=== PATIENT | male | born 1960 | race Caucasian/White ===

== ENCOUNTER 2017-05-02 00:51 | Day surgery (SDC) | payer MEDICARE ==
[~2017-05-02 00:51] MED LIST: ALBU90OI INH; AMOX1XR PO; ASPI81CH PO; ASPI81EC PO; ATRO1SO BOTHEYES; ATROPINE SULFATE IO; BUME2 PO; BYDUREON2 MG SQ; CEPH500 PO; CHRO200; CIPR500 PO; CLOP75 PO; EZET10 PO; FISH1000; FURO20 PO; FURO40 PO; GABA300 PO; GLIP10 PO; GLIP10ER PO; HYDACE10B PO; HYDR1TAB94 PO; IBUP800; IBUP800 PO; INSDETPEN SC; INSULANPEN; INSULANPEN SC; LEVAQUIN-D750 MG/150 IV; LEVEMIR FL100 UNIT/1 SQ; LEVFLO500 PO; LEVO750; LISI5 PO; LOSA50 PO; Lasix40 MG PO; MELO7.5 PO; METF500; METF500 PO; METF500C PO; METO50 PO; N-ACETYL-L-CYS600 MG PO; Nitrostat0.4 MG SL; Norco 10-325 T1 EACH PO; OMEGA 3-6-9 11200 MG PO; POTA10T PO; POTCHL10ER PO; PRAV20 PO; PRED1SU BOTHEYES; Pravachol80 MG PO; RANI150 PO; ROPI.25 PO; SITA100T2 PO; TIMO.5OPS LEFTEYE; TIMO.5OPSO LEFTEYE; VANCOMYCIN1.5 GM/251 IV; VICTOZA 3-0.6 MG/0.1 SC; Vibramycin100 MG PO; Zantac150 MG PO
[2017-09-17] MEDS ORDERED: SITA100T2 PO (18:33)
[2017-09-17] MEDS ORDERED: ROPI.25 PO (18:34)
[2017-09-17] MEDS ORDERED: METF500C PO (18:36)
[2017-09-17] MEDS ORDERED: LOSA50 PO (18:36)
[2017-09-17] MEDS ORDERED: BUME2 PO (18:38)
[2017-09-17] MEDS ORDERED: Novolog Fl100 UNIT/1 SC (18:40)
[2017-09-21] MEDS ORDERED: DOXY100 PO (14:41)
[2017-09-21] MEDS ORDERED: CULTURELLE1 EACH PO (14:41)
== END 2017-05-02 17:18 | disposition home or self-care (01) ==
LOC: WOUND 00:51
PROC: 0HBMXZZ Excision of Right Foot Skin, External Approach (ICD-10-PCS; principal; 2017-05-02)
DX: Z48.00 Encounter for change or removal of nonsurgical wound dressing (principal); E11.621 Type 2 diabetes mellitus with foot ulcer; L97.412 Non-pressure chronic ulcer of right heel and midfoot with fat layer exposed; L97.422 Non-pressure chronic ulcer of left heel and midfoot with fat layer exposed; L85.9 Epidermal thickening, unspecified; F17.210 Nicotine dependence, cigarettes, uncomplicated; Z89.422 Acquired absence of other left toe(s)
CPT/HCPCS: G0463

== ENCOUNTER 2017-05-24 11:00 | Day surgery (SDC) | payer MEDICARE ==
[2017-09-17] MEDS ORDERED: SITA100T2 PO (18:33)
[2017-09-17] MEDS ORDERED: ROPI.25 PO (18:34)
[2017-09-17] MEDS ORDERED: LOSA50 PO (18:36)
[2017-09-17] MEDS ORDERED: METF500C PO (18:36)
[2017-09-17] MEDS ORDERED: BUME2 PO (18:38)
[2017-09-17] MEDS ORDERED: Novolog Fl100 UNIT/1 SC (18:40)
[2017-09-21] MEDS ORDERED: DOXY100 PO (14:41)
[2017-09-21] MEDS ORDERED: CULTURELLE1 EACH PO (14:41)
== END 2017-05-24 11:44 | disposition home or self-care (01) ==
LOC: WOUND 11:00
DX: Z48.00 Encounter for change or removal of nonsurgical wound dressing (principal); E11.621 Type 2 diabetes mellitus with foot ulcer; F17.210 Nicotine dependence, cigarettes, uncomplicated; L97.519 Non-pressure chronic ulcer of other part of right foot with unspecified severity
CPT/HCPCS: G0463

== ENCOUNTER 2017-06-22 00:56 | Day surgery (SDC) | payer MEDICARE ==
[2017-09-17] MEDS ORDERED: SITA100T2 PO (18:33)
[2017-09-17] MEDS ORDERED: ROPI.25 PO (18:34)
[2017-09-17] MEDS ORDERED: METF500C PO (18:36)
[2017-09-17] MEDS ORDERED: LOSA50 PO (18:36)
[2017-09-17] MEDS ORDERED: BUME2 PO (18:38)
[2017-09-17] MEDS ORDERED: Novolog Fl100 UNIT/1 SC (18:40)
[2017-09-21] MEDS ORDERED: CULTURELLE1 EACH PO (14:41)
[2017-09-21] MEDS ORDERED: DOXY100 PO (14:41)
== END 2017-06-22 23:20 | disposition home or self-care (01) ==
LOC: WOUND 00:56
PROC: 0KBW0ZZ Excision of Left Foot Muscle, Open Approach (ICD-10-PCS; principal; 2017-06-22)
PROC: 0KBT0ZZ Excision of Left Lower Leg Muscle, Open Approach (ICD-10-PCS; principal; 2017-06-22)
DX: Z48.00 Encounter for change or removal of nonsurgical wound dressing (principal); E11.621 Type 2 diabetes mellitus with foot ulcer; I70.209 Unspecified atherosclerosis of native arteries of extremities, unspecified extremity; F17.210 Nicotine dependence, cigarettes, uncomplicated
CPT/HCPCS: 82947; 87070; 87205; G0463

== ENCOUNTER 2017-09-14 13:16 | Emergency (ER) | payer MEDICARE ==
[~2017-09-14] VITALS: Ht 193 cm; Wt 138.3 kg
[~2017-09-14 13:16] MED LIST changes: -Norco 10-325 T1 EACH PO; -Zantac150 MG PO
[2017-09-14 14:07] LABS: BASOPHILS ABSOLUTE AUTO 0.05 K/mm3 (0.00-0.23); BASOPHILS PERCENT AUTO 1 % (0-2); EOSINOPHILS ABSOLUTE AUTO 0.14 K/mm3 (0.00-0.68); EOSINOPHILS PERCENT AUTO 1 % (0-6); Hematocrit 46.5 % (37.0-53.0); Hemoglobin 15.9 g/dL (13.5-17.5); IMMATURE GRAN ABSOLUTE AUTO 0.08 K/mm3 (0.00-0.10); IMMATURE GRAN PERCENT AUTO 1 % (0-1); LYMPHOCYTES ABSOLUTE AUTO 2.16 K/mm3 (0.84-5.20); LYMPHOCYTES PERCENT AUTO 20 % (21-46); MONOCYTES ABSOLUTE AUTO 1.22 K/mm3 (0.16-1.47); MONOCYTES PERCENT AUTO 11 % (4-13); Mean Corpuscular HGB 31.6 pg (26.0-34.0); Mean Corpuscular HGB Conc 34.2 g/dL (31.5-36.5); Mean Corpuscular Volume 92 fL (80-100); Mean Platelet Volume 10.8 fL (9.1-12.4); NEUTROPHILS ABSOLUTE AUTO 7.05 K/mm3 (1.96-9.15); NEUTROPHILS PERCENT AUTO 66 % (41-73); Platelet Count 171 K/mm3 (150-400); RDW Coefficient Variation 12.7 % (11.7-14.2); RDW Standard Deviation 43.3 fL (35.1-46.3); Red Blood Cell Count 5.03 M/mm3 (4.30-5.90)
[2017-09-14 14:24] LABS: Anion Gap 8 mmol/L (6-16); Blood Urea Nitrogen 14 mg/dL (8-24); Bun/Creatinine Ratio 15.8 (12.0-20.0); CO2, Blood 29 mmol/L (21-32); Calcium, Blood 9.3 mg/dL (8.5-10.1); Chloride, Blood 97 mmol/L (98-108); Creatinine, Blood 0.88 mg/dL (0.60-1.20); Glomerular Filtration Rate >60 (60-); Glucose, Blood 146 mg/dL (70-99); Potassium, Blood 4.5 mmol/L (3.5-5.5); Sodium, Blood 134 mmol/L (136-145)
[2017-09-14] MEDS ORDERED: Cleocin HCl300 MG PO (15:05)
[2017-09-17] MEDS ORDERED: SITA100T2 PO (18:33)
[2017-09-17] MEDS ORDERED: ROPI.25 PO (18:34)
[2017-09-17] MEDS ORDERED: METF500C PO (18:36)
[2017-09-17] MEDS ORDERED: LOSA50 PO (18:36)
[2017-09-17] MEDS ORDERED: BUME2 PO (18:38)
[2017-09-17] MEDS ORDERED: Novolog Fl100 UNIT/1 SC (18:40)
== END 2017-09-14 15:07 | disposition left against medical advice (07) ==
LOC: ER 13:16
PROVIDERS: Physician Assistant
DX: L03.116 Cellulitis of left lower limb (principal); L02.416 Cutaneous abscess of left lower limb; E11.9 Type 2 diabetes mellitus without complications; F17.210 Nicotine dependence, cigarettes, uncomplicated; Z88.1 Allergy status to other antibiotic agents; Z88.8 Allergy status to other drugs, medicaments and biological substances; Z79.899 Other long term (current) drug therapy; Z79.4 Long term (current) use of insulin; Z79.82 Long term (current) use of aspirin
CPT/HCPCS: 36415; 76882; 80048; 85025; 96365; 99284

== ENCOUNTER 2017-09-17 14:00 | Inpatient (IN) | END 2017-09-21 16:03 | disposition home or self-care (01) | DRG 571 ==

== ENCOUNTER 2017-11-05 00:08 | Day surgery (SDC) | payer MEDICARE ==
[~2017-11-05 00:08] MED LIST changes: +CULTURELLE1 EACH PO; +Cleocin HCl300 MG PO; +DOXY100 PO; +Norco 10-325 T1 EACH PO; +Novolog Fl100 UNIT/1 SC; +Zantac150 MG PO
== END 2017-11-05 10:28 | disposition home or self-care (01) ==
LOC: WOUND 00:08
PROC: 2W0QX6Z Change Pressure Dressing on Right Lower Leg (ICD-10-PCS; principal; 2017-11-05)
DX: Z48.01 Encounter for change or removal of surgical wound dressing (principal); I70.209 Unspecified atherosclerosis of native arteries of extremities, unspecified extremity; E11.622 Type 2 diabetes mellitus with other skin ulcer; E11.65 Type 2 diabetes mellitus with hyperglycemia; L97.812 Non-pressure chronic ulcer of other part of right lower leg with fat layer exposed; E11.621 Type 2 diabetes mellitus with foot ulcer; L97.502 Non-pressure chronic ulcer of other part of unspecified foot with fat layer exposed; L97.422 Non-pressure chronic ulcer of left heel and midfoot with fat layer exposed; L02.416 Cutaneous abscess of left lower limb; F17.218 Nicotine dependence, cigarettes, with other nicotine-induced disorders; E78.5 Hyperlipidemia, unspecified; Z88.8 Allergy status to other drugs, medicaments and biological substances; Z95.1 Presence of aortocoronary bypass graft; Z95.5 Presence of coronary angioplasty implant and graft; Z86.73 Personal history of transient ischemic attack (TIA), and cerebral infarction without residual deficits
CPT/HCPCS: G0463

== ENCOUNTER 2017-11-12 11:00 | Day surgery (SDC) | payer MEDICARE | END 2017-11-12 13:04 | disposition home or self-care (01) | LOC: WOUND 11:00 | DX: E11.621 Type 2 diabetes mellitus with foot ulcer (principal); E11.622 Type 2 diabetes mellitus with other skin ulcer; L97.522 Non-pressure chronic ulcer of other part of left foot with fat layer exposed; L97.418 Non-pressure chronic ulcer of right heel and midfoot with other specified severity; L97.822 Non-pressure chronic ulcer of other part of left lower leg with fat layer exposed; S81.812A Laceration without foreign body, left lower leg, initial encounter; I70.209 Unspecified atherosclerosis of native arteries of extremities, unspecified extremity; R60.0 Localized edema; E11.65 Type 2 diabetes mellitus with hyperglycemia; F17.218 Nicotine dependence, cigarettes, with other nicotine-induced disorders; L84 Corns and callosities | CPT/HCPCS: G0463 ==

== ENCOUNTER 2017-12-15 19:38 | Emergency (ER) | payer MEDICARE ==
[~2017-12-15] VITALS: Ht 193 cm; Wt 140.6 kg
[2017-12-15] MEDS ORDERED: Keflex500 MG PO (21:59)
[2017-12-15] MEDS ORDERED: Bactrim Ds Tab1 EACH PO (21:59)
== END 2017-12-15 22:05 | disposition home or self-care (01) ==
LOC: ER 19:38
DX: L03.114 Cellulitis of left upper limb (principal); Z88.8 Allergy status to other drugs, medicaments and biological substances; Z79.899 Other long term (current) drug therapy; Z79.4 Long term (current) use of insulin; Z79.82 Long term (current) use of aspirin; Z79.84 Long term (current) use of oral hypoglycemic drugs; E11.9 Type 2 diabetes mellitus without complications; E78.5 Hyperlipidemia, unspecified; I10 Essential (primary) hypertension; J44.9 Chronic obstructive pulmonary disease, unspecified; F17.200 Nicotine dependence, unspecified, uncomplicated
CPT/HCPCS: 99282

== ENCOUNTER → 2017-12-20 | Outpatient (CLI) | payer MEDICARE ==
[~2017-12-20] MED LIST changes: +Bactrim Ds Tab1 EACH PO; +Keflex500 MG PO
== END ==
LOC: LAB 11:27 → LAB SHORT 11:27
DX: M25.522 Pain in left elbow (principal)
CPT/HCPCS: 87070; 87075; 87077; 87147; 87186; 87205

== ENCOUNTER 2017-12-31 17:00 | Emergency (ER) | payer MEDICARE ==
[~2017-12-31] VITALS: Ht 193 cm; Wt 140.2 kg
[2017-12-31 19:57] LABS: BASOPHILS ABSOLUTE AUTO 0.04 K/mm3 (0.00-0.23); BASOPHILS PERCENT AUTO 0 % (0-2); EOSINOPHILS ABSOLUTE AUTO 0.42 K/mm3 (0.00-0.68); EOSINOPHILS PERCENT AUTO 4 % (0-6); Hematocrit 42.2 % (37.0-53.0); IMMATURE GRAN ABSOLUTE AUTO 0.05 K/mm3 (0.00-0.10); IMMATURE GRAN PERCENT AUTO 1 % (0-1); LYMPHOCYTES ABSOLUTE AUTO 2.53 K/mm3 (0.84-5.20); LYMPHOCYTES PERCENT AUTO 26 % (21-46); MONOCYTES ABSOLUTE AUTO 0.93 K/mm3 (0.16-1.47); MONOCYTES PERCENT AUTO 10 % (4-13); Mean Corpuscular HGB 30.9 pg (26.0-34.0); Mean Corpuscular HGB Conc 33.2 g/dL (31.5-36.5); Mean Corpuscular Volume 93 fL (80-100); NEUTROPHILS ABSOLUTE AUTO 5.63 K/mm3 (1.96-9.15); NEUTROPHILS PERCENT AUTO 59 % (41-73); Platelet Count 189 K/mm3 (150-400); RDW Coefficient Variation 12.9 % (11.7-14.2); RDW Standard Deviation 44.1 fL (35.1-46.3); Red Blood Cell Count 4.53 M/mm3 (4.30-5.90)
[2017-12-31 20:10] LABS: Alanine Aminotransfer (ALT/SGP 45 U/L (12-78); Albumin/Globulin Ratio 0.6 (0.8-1.8); Alk Phos 67 U/L (50-136); Anion Gap 10 mmol/L (6-16); Aspartate Aminotrans (AST/SGOT 61 U/L (12-37); Bilirubin, Total 0.3 mg/dL (0.1-1.0); Blood Urea Nitrogen 16 mg/dL (8-24); Bun/Creatinine Ratio 16.4 (12.0-20.0); CO2, Blood 25 mmol/L (21-32); Calcium, Blood 8.5 mg/dL (8.5-10.1); Chloride, Blood 97 mmol/L (98-108); Creatinine, Blood 0.98 mg/dL (0.60-1.20); Globulin, Blood 4.9 g/dL (2.2-4.0); Glomerular Filtration Rate >60 (60-); Glucose, Blood 196 mg/dL (70-99); Potassium, Blood 4.7 mmol/L (3.5-5.5); Sodium, Blood 132 mmol/L (136-145); Total Protein, Blood 7.9 g/dL (6.4-8.2)
== END 2017-12-31 19:41 | disposition home or self-care (01) ==
LOC: ER 17:00
PROVIDERS: Physician Assistant
DX: L03.114 Cellulitis of left upper limb (principal); E11.9 Type 2 diabetes mellitus without complications; F17.210 Nicotine dependence, cigarettes, uncomplicated; Z88.1 Allergy status to other antibiotic agents; Z88.8 Allergy status to other drugs, medicaments and biological substances; Z79.899 Other long term (current) drug therapy; Z79.82 Long term (current) use of aspirin; Z79.4 Long term (current) use of insulin
CPT/HCPCS: 36415; 73080; 80053; 85025; 99283-25

== ENCOUNTER 2018-01-08 12:15 | Day surgery (SDC) | payer MEDICARE | END 2018-01-08 22:38 | disposition home or self-care (01) | LOC: WOUND 12:15 | DX: S81.802D Unspecified open wound, left lower leg, subsequent encounter (principal); E11.21 Type 2 diabetes mellitus with diabetic nephropathy; E11.621 Type 2 diabetes mellitus with foot ulcer; L97.529 Non-pressure chronic ulcer of other part of left foot with unspecified severity | CPT/HCPCS: 82947; G0463 ==

== ENCOUNTER 2018-01-08 14:25 | Emergency (ER) | payer MEDICARE ==
[~2018-01-08] VITALS: Ht 193 cm; Wt 140.2 kg
[2018-01-08 15:10] LABS: BASOPHILS ABSOLUTE AUTO 0.08 K/mm3 (0.00-0.23); BASOPHILS PERCENT AUTO 1 % (0-2); EOSINOPHILS ABSOLUTE AUTO 1.79 K/mm3 (0.00-0.68); EOSINOPHILS PERCENT AUTO 13 % (0-6); Hemoglobin 15.4 g/dL (13.5-17.5); IMMATURE GRAN ABSOLUTE AUTO 0.38 K/mm3 (0.00-0.10); IMMATURE GRAN PERCENT AUTO 3 % (0-1); LYMPHOCYTES ABSOLUTE AUTO 2.35 K/mm3 (0.84-5.20); LYMPHOCYTES PERCENT AUTO 17 % (21-46); MONOCYTES ABSOLUTE AUTO 1.33 K/mm3 (0.16-1.47); MONOCYTES PERCENT AUTO 10 % (4-13); Mean Corpuscular HGB 31.2 pg (26.0-34.0); Mean Corpuscular HGB Conc 33.5 g/dL (31.5-36.5); Mean Corpuscular Volume 93 fL (80-100); Mean Platelet Volume 10.6 fL (9.1-12.4); NEUTROPHILS ABSOLUTE AUTO 8.02 K/mm3 (1.96-9.15); NEUTROPHILS PERCENT AUTO 58 % (41-73); Platelet Count 223 K/mm3 (150-400); RDW Coefficient Variation 13.6 % (11.7-14.2); RDW Standard Deviation 46.5 fL (35.1-46.3); Red Blood Cell Count 4.94 M/mm3 (4.30-5.90); White Blood Cell Count 13.95 K/mm3 (4.00-11.30)
[2018-01-08 15:25] LABS: Alanine Aminotransfer (ALT/SGP 30 U/L (12-78); Albumin, Blood 3.2 g/dL (3.4-5.0); Albumin/Globulin Ratio 0.7 (0.8-1.8); Alk Phos 68 U/L (50-136); Anion Gap 9 mmol/L (6-16); Aspartate Aminotrans (AST/SGOT 39 U/L (12-37); Bilirubin, Total 0.2 mg/dL (0.1-1.0); Blood Urea Nitrogen 19 mg/dL (8-24); Bun/Creatinine Ratio 16.7 (12.0-20.0); CO2, Blood 26 mmol/L (21-32); Calcium, Blood 8.9 mg/dL (8.5-10.1); Chloride, Blood 102 mmol/L (98-108); Creatinine, Blood 1.14 mg/dL (0.60-1.20); Globulin, Blood 4.8 g/dL (2.2-4.0); Glomerular Filtration Rate >60 (60-); Glucose, Blood 59 mg/dL (70-99); Potassium, Blood 3.9 mmol/L (3.5-5.5); Sodium, Blood 137 mmol/L (136-145)
== END 2018-01-08 16:44 | disposition home or self-care (01) ==
LOC: ER 14:25
PROVIDERS: Internal Medicine
DX: E11.649 Type 2 diabetes mellitus with hypoglycemia without coma (principal); Z88.8 Allergy status to other drugs, medicaments and biological substances; Z79.899 Other long term (current) drug therapy; Z79.4 Long term (current) use of insulin; Z79.82 Long term (current) use of aspirin; Z79.84 Long term (current) use of oral hypoglycemic drugs; F17.210 Nicotine dependence, cigarettes, uncomplicated
CPT/HCPCS: 36415; 80053; 82947; 85025; 99283

== ENCOUNTER 2018-04-29 06:28 | Day surgery (SDC) | payer MEDICARE ==
[~2018-04-29] VITALS: Ht 193 cm; Wt 144.8 kg
== END 2018-04-29 08:58 | disposition home or self-care (01) ==
LOC: ORSCSDS 06:28
PROVIDERS: Student in an Organized Health Care Education/Training Program
PROC: 0DB68ZX Excision of Stomach, Via Natural or Artificial Opening Endoscopic, Diagnostic (ICD-10-PCS; principal; 2018-04-29 08:00)
PROC: 0DJD8ZZ Inspection of Lower Intestinal Tract, Via Natural or Artificial Opening Endoscopic (ICD-10-PCS; principal; 2018-04-29 08:00)
DX: R10.13 Epigastric pain (principal); K29.00 Acute gastritis without bleeding; K25.9 Gastric ulcer, unspecified as acute or chronic, without hemorrhage or perforation; K92.1 Melena; I25.10 Atherosclerotic heart disease of native coronary artery without angina pectoris; I10 Essential (primary) hypertension; E11.9 Type 2 diabetes mellitus without complications; J44.9 Chronic obstructive pulmonary disease, unspecified; G47.33 Obstructive sleep apnea (adult) (pediatric); F17.210 Nicotine dependence, cigarettes, uncomplicated; Z79.01 Long term (current) use of anticoagulants; Z79.82 Long term (current) use of aspirin; Z79.4 Long term (current) use of insulin; Z79.899 Other long term (current) drug therapy
CPT/HCPCS: 82947; 88305; 88341; 88342; J0330; J1980; J2250; J2405; J7120

== ENCOUNTER → 2018-05-27 | Outpatient (CLI) | payer MEDICARE ==
[2018-05-28 10:14] LABS: U Amphetamine Screen Not Detected; U Barbituate Screen Not Detected; U Benzodiazapine Screen Not Detected; U Buprenorphine Screen Not Detected; U Cannabinoids Screen Not Detected; U Cocaine Screen Not Detected; U Methadone Screen Not Detected; U Methamphetamine Screen Not Detected; U Opiates Screen DETECTED; U Oxycodone Screen Not Detected; U Phencyclidine Screen Not Detected; U Propoxyphene Screen Not Detected
== END | disposition home or self-care (01) ==
LOC: LAB SHORT 16:51 → LAB 16:51
PROVIDERS: Internal Medicine Hematology & Oncology
DX: F11.220 Opioid dependence with intoxication, uncomplicated (principal)
CPT/HCPCS: G0480

== ENCOUNTER 2018-09-08 18:04 | Inpatient (IN) | payer MEDICARE ==
[~2018-09-08] VITALS: Ht 193 cm; Wt 147.2 kg
[~2018-09-08 18:04] MED LIST changes: +NOVOLOG FL100 UNIT/1 SC; -Novolog Fl100 UNIT/1 SC
[2018-09-08 18:56] LABS: BASOPHILS ABSOLUTE AUTO 0.05 K/mm3 (0.00-0.23); BASOPHILS PERCENT AUTO 1 % (0-2); EOSINOPHILS ABSOLUTE AUTO 0.18 K/mm3 (0.00-0.68); EOSINOPHILS PERCENT AUTO 3 % (0-6); Hematocrit 43.2 % (37.0-53.0); IMMATURE GRAN ABSOLUTE AUTO 0.07 K/mm3 (0.00-0.10); IMMATURE GRAN PERCENT AUTO 1 % (0-1); LYMPHOCYTES ABSOLUTE AUTO 1.83 K/mm3 (0.84-5.20); LYMPHOCYTES PERCENT AUTO 25 % (21-46); MONOCYTES ABSOLUTE AUTO 0.62 K/mm3 (0.16-1.47); MONOCYTES PERCENT AUTO 9 % (4-13); Mean Corpuscular HGB 30.7 pg (26.0-34.0); Mean Corpuscular HGB Conc 32.4 g/dL (31.5-36.5); Mean Corpuscular Volume 95 fL (80-100); NEUTROPHILS ABSOLUTE AUTO 4.52 K/mm3 (1.96-9.15); NEUTROPHILS PERCENT AUTO 62 % (41-73); Platelet Count 245 K/mm3 (150-400); RDW Coefficient Variation 13.1 % (11.7-14.2); Red Blood Cell Count 4.56 M/mm3 (4.30-5.90); White Blood Cell Count 7.27 K/mm3 (4.00-11.30)
[2018-09-08 19:14] LABS: Alanine Aminotransfer (ALT/SGP 29 U/L (12-78); Albumin, Blood 2.7 g/dL (3.4-5.0); Albumin/Globulin Ratio 0.5 (0.8-1.8); Alk Phos 71 U/L (50-136); Anion Gap 2 mmol/L (6-16); Aspartate Aminotrans (AST/SGOT 38 U/L (12-37); Bilirubin, Total 0.2 mg/dL (0.1-1.0); Blood Urea Nitrogen 20 mg/dL (8-24); Bun/Creatinine Ratio 17.7 (12.0-20.0); CO2, Blood 30 mmol/L (21-32); Calcium, Blood 8.7 mg/dL (8.5-10.1); Chloride, Blood 100 mmol/L (98-108); Creatinine, Blood 1.13 mg/dL (0.60-1.20); Globulin, Blood 5.4 g/dL (2.2-4.0); Glomerular Filtration Rate >60 (60-); Glucose, Blood 76 mg/dL (70-99); Potassium, Blood 4.8 mmol/L (3.5-5.5); Sodium, Blood 132 mmol/L (136-145); Total Protein, Blood 8.1 g/dL (6.4-8.2)
[2018-09-08] MEDS ORDERED: METF500C PO (20:20)
[2018-09-08] MEDS ORDERED: ESOMEPRAZOLE MA40 MG PO (20:35)
[2018-09-08] MEDS ORDERED: BUME2 PO (21:00)
[2018-09-09 04:30] LABS: BASOPHILS ABSOLUTE AUTO 0.04 K/mm3 (0.00-0.23); BASOPHILS PERCENT AUTO 1 % (0-2); EOSINOPHILS ABSOLUTE AUTO 0.12 K/mm3 (0.00-0.68); EOSINOPHILS PERCENT AUTO 2 % (0-6); Hematocrit 40.8 % (37.0-53.0); IMMATURE GRAN ABSOLUTE AUTO 0.04 K/mm3 (0.00-0.10); IMMATURE GRAN PERCENT AUTO 1 % (0-1); LYMPHOCYTES ABSOLUTE AUTO 2.06 K/mm3 (0.84-5.20); LYMPHOCYTES PERCENT AUTO 28 % (21-46); MONOCYTES ABSOLUTE AUTO 0.71 K/mm3 (0.16-1.47); MONOCYTES PERCENT AUTO 10 % (4-13); Mean Corpuscular HGB 30.4 pg (26.0-34.0); Mean Corpuscular HGB Conc 31.9 g/dL (31.5-36.5); Mean Corpuscular Volume 96 fL (80-100); Mean Platelet Volume 9.8 fL (9.1-12.4); NEUTROPHILS ABSOLUTE AUTO 4.51 K/mm3 (1.96-9.15); NEUTROPHILS PERCENT AUTO 60 % (41-73); Platelet Count 216 K/mm3 (150-400); RDW Coefficient Variation 13.2 % (11.7-14.2); RDW Standard Deviation 46.5 fL (35.1-46.3); Red Blood Cell Count 4.27 M/mm3 (4.30-5.90); White Blood Cell Count 7.48 K/mm3 (4.00-11.30)
[2018-09-09 04:45] LABS: International Normalized Ratio 0.97; Prothrombin Time Results 10.3 Sec (9.7-11.5)
[2018-09-09 04:53] LABS: Alanine Aminotransfer (ALT/SGP 27 U/L (12-78); Albumin, Blood 2.5 g/dL (3.4-5.0); Albumin/Globulin Ratio 0.5 (0.8-1.8); Alk Phos 65 U/L (50-136); Anion Gap 5 mmol/L (6-16); Aspartate Aminotrans (AST/SGOT 34 U/L (12-37); Bilirubin, Total 0.2 mg/dL (0.1-1.0); Blood Urea Nitrogen 17 mg/dL (8-24); Bun/Creatinine Ratio 15.6 (12.0-20.0); CO2, Blood 28 mmol/L (21-32); Calcium, Blood 8.6 mg/dL (8.5-10.1); Chloride, Blood 104 mmol/L (98-108); Creatinine, Blood 1.09 mg/dL (0.60-1.20); Globulin, Blood 4.8 g/dL (2.2-4.0); Glomerular Filtration Rate >60 (60-); Glucose, Blood 87 mg/dL (70-99); Potassium, Blood 5.1 mmol/L (3.5-5.5); Sodium, Blood 137 mmol/L (136-145); Total Protein, Blood 7.3 g/dL (6.4-8.2)
--- NOTE | 2018-09-09 05:41 | NUR ---
SHIFT SUMMARY PT ADMITTED FOR SEVERE SEPSIS, CELLULITIS NOTED OF THE LEFT ELBOW. PT ALERT AND ORIENTED. ALSO NOTED TO HAVE A DIABETIC FOOT ULCER ON THE RIGHT FOOT BOTTOM OF GREAT TOE. PICTURES TAKEN OF BOTH AREAS AND ARE IN CHART. LEFT ELBOW WRAPPED. IVF'S INFUSING WITHOUT DIFFICULTY. WILL CONTINUE TO MONITOR.
--- NOTE | 2018-09-09 16:59 | NUR ---
PT REPORTS THAT HE DOES NOT USE CPAP/BIPAP/O2 AT HOME. DR. YADAV NOTIFIED, RECIEVED ORDER TO D/C BIPAP. RT NOTIFIED.
[2018-09-09 17:32] LABS: Vancomycin, Trough 17.3 ug/mL (5.0-10.0)
--- NOTE | 2018-09-09 19:22 | NUR ---
SHIFT SUMMARY. A&OX3, SBA TO BATHROOM SECONDARY TO IV. L ELBOW DRESSING CHANGED SECONDARY TO SOILING R/T DRAINAGE. R DIABETIC FOOT ULCER DRESSING CHANGED SECONDARY TO SOILING. PT REPORTED PAIN TO L ELBOW, MANAGED WELL WITH CURRENT ORDERS. PT DENIES SOB, N/V. CONTINUES WITH IV ABX. NO NEW CHANGES.
[2018-09-10 04:41] LABS: BASOPHILS ABSOLUTE AUTO 0.08 K/mm3 (0.00-0.23); BASOPHILS PERCENT AUTO 1 % (0-2); EOSINOPHILS ABSOLUTE AUTO 0.19 K/mm3 (0.00-0.68); EOSINOPHILS PERCENT AUTO 2 % (0-6); Hematocrit 45.1 % (37.0-53.0); Hemoglobin 14.4 g/dL (13.5-17.5); IMMATURE GRAN ABSOLUTE AUTO 0.05 K/mm3 (0.00-0.10); IMMATURE GRAN PERCENT AUTO 1 % (0-1); LYMPHOCYTES ABSOLUTE AUTO 2.23 K/mm3 (0.84-5.20); LYMPHOCYTES PERCENT AUTO 23 % (21-46); MONOCYTES ABSOLUTE AUTO 0.89 K/mm3 (0.16-1.47); MONOCYTES PERCENT AUTO 9 % (4-13); Mean Corpuscular HGB 30.7 pg (26.0-34.0); Mean Corpuscular HGB Conc 31.9 g/dL (31.5-36.5); Mean Corpuscular Volume 96 fL (80-100); NEUTROPHILS ABSOLUTE AUTO 6.33 K/mm3 (1.96-9.15); NEUTROPHILS PERCENT AUTO 65 % (41-73); Platelet Count 254 K/mm3 (150-400); RDW Coefficient Variation 13.2 % (11.7-14.2); Red Blood Cell Count 4.69 M/mm3 (4.30-5.90); White Blood Cell Count 9.77 K/mm3 (4.00-11.30)
--- NOTE | 2018-09-10 04:59 | NUR ---
Shift Summary: Left elbow cellulitis site redressed x 2 last pm per pt's request. Pt given norco q 8 hours with minimal relief for his lower back pain and left elbow. Pt recieving antibx's without problems. blood sugar last pm was 171- no sliding scale coverage needed.
[2018-09-10 05:02] LABS: Alanine Aminotransfer (ALT/SGP 30 U/L (12-78); Albumin, Blood 2.8 g/dL (3.4-5.0); Albumin/Globulin Ratio 0.5 (0.8-1.8); Alk Phos 77 U/L (50-136); Anion Gap 6 mmol/L (6-16); Aspartate Aminotrans (AST/SGOT 38 U/L (12-37); Bilirubin, Total 0.4 mg/dL (0.1-1.0); Blood Urea Nitrogen 14 mg/dL (8-24); Bun/Creatinine Ratio 14.7 (12.0-20.0); CO2, Blood 26 mmol/L (21-32); Calcium, Blood 9.1 mg/dL (8.5-10.1); Chloride, Blood 102 mmol/L (98-108); Creatinine, Blood 0.95 mg/dL (0.60-1.20); Globulin, Blood 5.5 g/dL (2.2-4.0); Glomerular Filtration Rate >60 (60-); Glucose, Blood 109 mg/dL (70-99); Potassium, Blood 4.8 mmol/L (3.5-5.5); Sodium, Blood 134 mmol/L (136-145); Total Protein, Blood 8.3 g/dL (6.4-8.2)
[2018-09-10] MEDS ORDERED: Sulfamethoxazo1 EAC4 PO (11:16)
[2018-09-10] MEDS ORDERED: Vsl#3 Capsule1 EACH PO (11:17)
--- NOTE | 2018-09-10 11:49 | NUR ---
1149 PT DISCHARGED HOME, PT REQUESTED TO BE ESCORTED TO FACILITY ENTRANCE VIA W/C TO AWAIT TO PROVIDE TRANSPORTATION HOME, SUPERVISOR BENZENE REFINING ESCORTED PT VIA W/C. IV REMOVED. D/C INSTRUCTIONS AND EDUCATION REVIEWED WITH PT AND COPY PROVIDED. NEW RX FAXED TO [facility] PER PT REQUEST. PT REPORTED THAT HE ALREADY HAS APPOINTMENTS WITH DR. COWART AND DR. BRICEÑO THIS MONTH. DRESSING TO L ELBOW CHANGED THIS AM. L ELBOW HAS DECREASED REDNESS, DRAINAGE, AND EDEMA WHEN COMPARED TO YESTERDAY.
== END 2018-09-10 11:49 | disposition home or self-care (01) | DRG 872 ==
LOC: ER 18:04 → MEDS 21:10 → ENPENDDIS 09-10 10:18 → MEDS 09-10 11:49
PROVIDERS: Family Medicine; Nurse Practitioner Acute Care; Physician Assistant; ADMIT Internal Medicine
DX: A41.02 Sepsis due to Methicillin resistant Staphylococcus aureus (principal); L03.114 Cellulitis of left upper limb; E87.2 Acidosis; E87.1 Hypo-osmolality and hyponatremia; E66.2 Morbid (severe) obesity with alveolar hypoventilation; E78.5 Hyperlipidemia, unspecified; J44.9 Chronic obstructive pulmonary disease, unspecified; F17.210 Nicotine dependence, cigarettes, uncomplicated; G47.33 Obstructive sleep apnea (adult) (pediatric); Z91.19 Patient's noncompliance with other medical treatment and regimen; E11.40 Type 2 diabetes mellitus with diabetic neuropathy, unspecified; I10 Essential (primary) hypertension; I25.10 Atherosclerotic heart disease of native coronary artery without angina pectoris; Z95.5 Presence of coronary angioplasty implant and graft; Z68.39 Body mass index [BMI] 39.0-39.9, adult; E11.621 Type 2 diabetes mellitus with foot ulcer; L97.519 Non-pressure chronic ulcer of other part of right foot with unspecified severity; Z79.4 Long term (current) use of insulin; M71.122 Other infective bursitis, left elbow
CPT/HCPCS: 36415; 73201; 80053; 80202; 82947; 83036; 83605; 85025; 85610; 86140; 94760; 96365-59; 96366-59; 99284-25; J0690; J1650; J3370; J7030; J7050; J7120; Q9967

== ENCOUNTER → 2019-01-31 | Outpatient (CLI) | payer MEDICARE ==
[~2019-01-31] MED LIST changes: +ESOMEPRAZOLE MA40 MG PO; +Sulfamethoxazo1 EAC4 PO; +Vsl#3 Capsule1 EACH PO
[2019-01-31 13:25] LABS: RBC Count, Synovial Fluid 10000 /mm3 (0-0); WBC Count, Synovial Fluid 421 /mm3 (0-180)
[2019-01-31 13:36] LABS: Appearance, Synovial Fluid Hazy (Clear); Color, Synovial Fluid Yellow (None-P Yel)
[2019-01-31 13:59] LABS: Lymphs, Synovial Fluid 23 % (0-15); Monocytes/Macrophages, Synovia 60 % (0-65); Neutrophils, Synovial Fluid 17 % (0-24)
== END | disposition home or self-care (01) ==
LOC: LAB SHORT 12:51 → LAB 12:51
PROVIDERS: Orthopaedic Surgery
DX: M70.22 Olecranon bursitis, left elbow (principal)
CPT/HCPCS: 87070; 87075; 87205; 89051

== ENCOUNTER 2019-09-08 14:56 | Inpatient (IN) | payer MEDICARE ==
[~2019-09-08] VITALS: Ht 190.5 cm; Wt 148.1 kg
[~2019-09-08 14:56] MED LIST changes: -ASPI81CH PO; +Aspirin EC81 MG PO; -Pravachol80 MG PO; +Pravastatin Sod80 MG PO
[2019-09-08 15:29] LABS: BASOPHILS ABSOLUTE AUTO 0.08 K/mm3 (0.00-0.23); BASOPHILS PERCENT AUTO 0 % (0-2); EOSINOPHILS ABSOLUTE AUTO 0.05 K/mm3 (0.00-0.68); EOSINOPHILS PERCENT AUTO 0 % (0-6); Hematocrit 45.6 % (37.0-53.0); Hemoglobin 14.8 g/dL (13.5-17.5); IMMATURE GRAN ABSOLUTE AUTO 0.14 K/mm3 (0.00-0.10); IMMATURE GRAN PERCENT AUTO 1 % (0-1); LYMPHOCYTES ABSOLUTE AUTO 0.85 K/mm3 (0.84-5.20); LYMPHOCYTES PERCENT AUTO 4 % (21-46); MONOCYTES ABSOLUTE AUTO 1.28 K/mm3 (0.16-1.47); MONOCYTES PERCENT AUTO 6 % (4-13); Mean Corpuscular HGB 30.6 pg (26.0-34.0); Mean Corpuscular HGB Conc 32.5 g/dL (31.5-36.5); Mean Corpuscular Volume 94 fL (80-100); Mean Platelet Volume 11.2 fL (9.1-12.4); NEUTROPHILS ABSOLUTE AUTO 17.83 K/mm3 (1.96-9.15); NEUTROPHILS PERCENT AUTO 88 % (41-73); Platelet Count 195 K/mm3 (150-400); RDW Coefficient Variation 14.2 % (11.7-14.2); RDW Standard Deviation 49.5 fL (35.1-46.3); Red Blood Cell Count 4.84 M/mm3 (4.30-5.90); White Blood Cell Count 20.23 K/mm3 (4.00-11.30)
[2019-09-08 15:49] LABS: Source, Urine Catheter
[2019-09-08 15:53] LABS: Bilirubin, Urine Neg (Neg); Blood, Urine Neg (Neg); Glucose Qualitative, Urine Neg (Neg); Ketones, Urine Neg (Neg); Leukocyte Esterase, Urine 1+ (Neg); Nitrite, Urine Neg (Neg); Protein, Urine 1+ (Neg); Urobilinogen, Urine NORM (Normal)
[2019-09-08 15:58] LABS: Alanine Aminotransfer (ALT/SGP 30 U/L (12-78); Albumin, Blood 3.1 g/dL (3.4-5.0); Albumin/Globulin Ratio 0.6 (0.8-1.8); Alk Phos 63 U/L (50-136); Anion Gap 9 mmol/L (6-16); Aspartate Aminotrans (AST/SGOT 38 U/L (12-37); Bilirubin, Total 0.4 mg/dL (0.1-1.0); Blood Urea Nitrogen 22 mg/dL (8-24); Bun/Creatinine Ratio 18.3 (12.0-20.0); CO2, Blood 26 mmol/L (21-32); Calcium, Blood 8.7 mg/dL (8.5-10.1); Chloride, Blood 101 mmol/L (98-108); Globulin, Blood 5.4 g/dL (2.2-4.0); Glomerular Filtration Rate >60 (60-); Glucose, Blood 174 mg/dL (70-99); Potassium, Blood 5.5 mmol/L (3.5-5.5); Sodium, Blood 136 mmol/L (136-145); Total Protein, Blood 8.5 g/dL (6.4-8.2); Troponin I <0.015 ng/mL (0.000-0.040)
[2019-09-08 15:59] LABS: Appearance, Urine Clear (Clear); Bacteria Few /hpf; Color, Urine Yellow (P-Yellow); Mucus Light (0-Heavy); Red Blood Cells, Urine 0-2 /hpf (0-2); Squamous Epithelial Cells Rare /hpf (Few); White Blood Cells, Urine 0-2 /hpf (0-5)
[2019-09-08 16:10] LABS: Base Excess Venous 3.7 mmol/L; PCO2 Venous 43.7 mmHg (38-42); PO2 Venous 68.9 mmHg (38-42); pH Blood Venous 7.42 (7.34-7.37)
[2019-09-08] MEDS ORDERED: NEURONTIN300 MG PO (16:33)
[2019-09-08] MEDS ORDERED: POTA10T PO (16:34)
[2019-09-08] MEDS ORDERED: Lopressor 50 mg50 MG PO (16:34)
[2019-09-08] MEDS ORDERED: PLAVIX75 MG PO (16:34)
[2019-09-08] MEDS ORDERED: LOSA50 PO (16:37)
[2019-09-08] MEDS ORDERED: Glimepiride2 MG PO (16:38)
[2019-09-08] MEDS ORDERED: Norco 10-325 T1 EACH PO (16:52)
[2019-09-08] MEDS ORDERED: FAMO20 PO (16:53)
--- NOTE | 2019-09-08 18:20 | NUR ---
PT ARRIVAL: PT ARRIVED VIA ED GURNEY. PT MOVED TO BED, CALL LIGHT WITHIN REACH. PT ALERT AND ORIENTED X3. PLEASANT AND COOPERATIVE WITH CARE. PT REPORTS HX OF SEPSIS AND HAVING A PICC LINE IN THE PAST FOR 30 DAYS OF CONT ABX TX. LUNGS WITH INS/EXP WHEEZES T/O BILATERALLY AND VERY DIMINISHED IN THE RML/RLL. SP02 SATS LOW 90% RANGE ON 3L VIA N/C. PT REPORTS SOME COUGHING WITH NO SPUTUM PRODUCTION AT HOME. NO COUGH NOTED AT THIS TIME. PT REPORTS HE SMOKES 2 PPD AND PT'S RT 2ND/3RD FINGER ARE SCABBED OVER R/T TO PT REPEATED BURNING HIMSELF WITH CIGARETTES. 3RD LITER NS BOLUS INFUSING CURRENTLY THEN PT TO RUN NS @ 200ML/HR. ABD IS OBESE/DISTENDED W/ LARGE UMBILICAL HERNIA. VERY HYPOACTIVE BT'S X 4 QAUDS. PT VOIDED PER URINAL IN ER.
--- NOTE | 2019-09-08 18:41 | NUR ---
LAB CALLED AND REPORTED LACTIC ACID SPECIMEN WAS HEMOLYZED. LAB TO INFORM PHLEBOTOMISTS TO COME REDRAW PT.
--- NOTE | 2019-09-08 19:00 | NUR ---
PT IS ADMITTED FROM ER FOR SEVERE SEPSIS, SOURCE UNCLEAR AT THIS TIME. HE IS RESTING QUIETLY AND ROUSES EASILY TO VERBAL STIMULI, WHEN STIMULUS IS DECREASED HE APPEARS TO SLEEP WITH RESPIRATIONS EVEN AND UNLABORED, SATS WITH SLEEP ARE NOTED TO DECREASE TO 88%, OXYGEN FLOW RATE TITRATED UP TO 5 L/MIN DURING ASSESSMENT WITH IMPROVEMENT OF SATS TO LOW 90S, LUNGS WITH COARSE DIM RIGHT MID, CLEAR RIGHT UPPER, DIM RIGHT BASE, CLEAR LEFT UPPER LOBE, DIM LEFT LOWER LOBE, NO VISIBLE INCREASED WORK OF BREATHING, PT SPEAKING IN LENGTHY SENTENCES. HRR, SINUS ON MONITOR, OCCASIONAL PVCS ARE NOTED, PRESSURES CONTINUE MID TO UPPER 80S SYSTOLIC, MAP MAINTAINING AT THIS TIME, EDEMA TO BILAT LOWER EXTREMITIES, NON PITTING 2+, SKIN IS PWD. ABD DISTENDED, HYPOACTIVE BOWEL TONES, PT STATES IS NORMAL FOR HIM, DENIES N/V, UMBILICAL HERNIA IS NOTED, PT DENIES PAIN. ATTENDS IN PLACE, DRY AT THIS TIME, WAS CONTINENT OF URINE IN ER, DENIES NEED TO VOID AT THIS TIME. MULT WOUNDS NOTED, SEE PHOTO DOCUMENTATION. SALINE INFUSING AT 200 ML/HR TO LEFT AC IV ACCESS, SITE WNL.
--- NOTE | 2019-09-08 19:00 | NUR ---
REPORTED OFF TO JUSTINO EDEN WHOM WILL BE ASSUMING CARE OF THIS PT.
[2019-09-08 19:51] LABS: U Amphetamine Screen Not Detected; U Barbituate Screen Not Detected; U Benzodiazapine Screen Not Detected; U Buprenorphine Screen Not Detected; U Cannabinoids Screen Not Detected; U Cocaine Screen Not Detected; U Methadone Screen Not Detected; U Methamphetamine Screen Not Detected; U Opiates Screen DETECTED; U Oxycodone Screen Not Detected; U Phencyclidine Screen Not Detected; U Propoxyphene Screen Not Detected
[2019-09-08] MEDS ORDERED: BUME2 PO (19:52)
[2019-09-09 04:02] LABS: BASOPHILS ABSOLUTE AUTO 0.05 K/mm3 (0.00-0.23); BASOPHILS PERCENT AUTO 0 % (0-2); EOSINOPHILS ABSOLUTE AUTO 0.06 K/mm3 (0.00-0.68); EOSINOPHILS PERCENT AUTO 0 % (0-6); Hematocrit 40.7 % (37.0-53.0); Hemoglobin 12.9 g/dL (13.5-17.5); IMMATURE GRAN ABSOLUTE AUTO 0.08 K/mm3 (0.00-0.10); IMMATURE GRAN PERCENT AUTO 1 % (0-1); LYMPHOCYTES ABSOLUTE AUTO 2.11 K/mm3 (0.84-5.20); LYMPHOCYTES PERCENT AUTO 12 % (21-46); MONOCYTES ABSOLUTE AUTO 1.33 K/mm3 (0.16-1.47); MONOCYTES PERCENT AUTO 8 % (4-13); Mean Corpuscular HGB 30.1 pg (26.0-34.0); Mean Corpuscular HGB Conc 31.7 g/dL (31.5-36.5); Mean Corpuscular Volume 95 fL (80-100); Mean Platelet Volume 10.9 fL (9.1-12.4); NEUTROPHILS ABSOLUTE AUTO 13.38 K/mm3 (1.96-9.15); NEUTROPHILS PERCENT AUTO 79 % (41-73); Platelet Count 168 K/mm3 (150-400); RDW Coefficient Variation 14.4 % (11.7-14.2); RDW Standard Deviation 50.4 fL (35.1-46.3); Red Blood Cell Count 4.29 M/mm3 (4.30-5.90); White Blood Cell Count 17.01 K/mm3 (4.00-11.30)
[2019-09-09 04:20] LABS: Alanine Aminotransfer (ALT/SGP 23 U/L (12-78); Albumin, Blood 2.5 g/dL (3.4-5.0); Albumin/Globulin Ratio 0.5 (0.8-1.8); Alk Phos 49 U/L (50-136); Anion Gap 5 mmol/L (6-16); Aspartate Aminotrans (AST/SGOT 28 U/L (12-37); Bilirubin, Total 0.5 mg/dL (0.1-1.0); Blood Urea Nitrogen 23 mg/dL (8-24); Bun/Creatinine Ratio 20.5 (12.0-20.0); CO2, Blood 28 mmol/L (21-32); Calcium, Blood 7.4 mg/dL (8.5-10.1); Chloride, Blood 108 mmol/L (98-108); Creatinine, Blood 1.12 mg/dL (0.60-1.20); Globulin, Blood 4.7 g/dL (2.2-4.0); Glomerular Filtration Rate >60 (60-); Glucose, Blood 109 mg/dL (70-99); Potassium, Blood 4.6 mmol/L (3.5-5.5); Sodium, Blood 141 mmol/L (136-145); Total Protein, Blood 7.2 g/dL (6.4-8.2)
--- NOTE | 2019-09-09 06:50 | NUR ---
PT ARRIVED TO UNIT. SETTLED IN BED. DIET PEPSI PROVIDED PER REQUEST. TELE PLACED ON PT. CBG TAKEN. PT ON 4L O2 VIA NC W/ SATS >92%. DENIED OTHER NEEDS.
--- NOTE | 2019-09-09 11:49 | NUR ---
PATIENT LEFT AMA PATIENT REMAINS HYPOXIC WITH SPO2 SATURATION AT 88-91% ON ROOM AIR WHILE RESTING - PATIENT EDUCATED ON LEAVING AGAINST MEDICAL ADVICE AND THE RISK OF , HYPOXIA AND RESPIRTORY FAILURE WITH HIS COMORBIDITIES. PATIENT VERBALIZED UNDERSTANDING AND VERBALIZED THAT HE DID NOT PLAN ON QUITTING SMOKING AND STATED HE WAS 'FINE' AND THAT HE WOULD BE GOING HOME. PATIENT SIGNED AMA FORM AND WAS WHEELED OUT OF UNIT PER HIS REQUEST. IV'S REMOVED WITH CATHETERS INTACT AND BELONGINGS RETURNED TO PATIENT. NOTIFIED MD HILL, WHO CAME OUTSIDE TO SPEAK TO PATIENT WITH THIS RN - MD HILL VERBALZIED THAT HE DID NOT WANT PATIENT TO LEAVE WHILE HE REMAINED ILL AND HYPOXIC - PATIENT VERBALIZED UNDERSTAND AND STATED HE WOULD BE GOING HOME. DISCUSSED AMA WITH PATIENTS , WHO STATED SHE WAS COMING TO PICK HIM UP.
== END 2019-09-09 11:41 | disposition left against medical advice (07) | DRG 871 ==
LOC: ER 14:56 → ICUW 18:13 → PCU 09-09 06:49
PROVIDERS: Emergency Medicine; ADMIT Hospitalist
PROC: 8E0ZXY6 Isolation (ICD-10-PCS; principal; 2019-09-08)
DX: A41.9 Sepsis, unspecified organism (principal); G92 Toxic encephalopathy; J69.0 Pneumonitis due to inhalation of food and vomit; Z68.41 Body mass index [BMI] 40.0-44.9, adult; L03.115 Cellulitis of right lower limb; Z79.4 Long term (current) use of insulin; R65.20 Severe sepsis without septic shock; E11.40 Type 2 diabetes mellitus with diabetic neuropathy, unspecified; I25.10 Atherosclerotic heart disease of native coronary artery without angina pectoris; J44.9 Chronic obstructive pulmonary disease, unspecified; E78.5 Hyperlipidemia, unspecified; I10 Essential (primary) hypertension; F17.210 Nicotine dependence, cigarettes, uncomplicated; G47.33 Obstructive sleep apnea (adult) (pediatric); Z95.1 Presence of aortocoronary bypass graft; E11.621 Type 2 diabetes mellitus with foot ulcer; R09.02 Hypoxemia; E66.01 Morbid (severe) obesity due to excess calories; Z89.422 Acquired absence of other left toe(s); L97.519 Non-pressure chronic ulcer of other part of right foot with unspecified severity
CPT/HCPCS: 36415; 70450; 71045; 73620; 74177; 80053; 81001; 82803; 82947; 83605; 83880; 84443; 84484; 85025; 93005; 93010; 96361; 96365; 96366; 96375; 99285-25; A9270; A9270-GY; J0696; J1650; J2405; J2543; J3370; J7030; J7050; Q9967; U0003

== ENCOUNTER 2019-10-23 09:10 | Day surgery (SDC) | payer MEDICARE ==
[~2019-10-23] VITALS: Ht 188 cm; Wt 144.2 kg
[~2019-10-23 09:10] MED LIST changes: +FAMO20 PO; +Glimepiride2 MG PO; +Lopressor 50 mg50 MG PO; +NEURONTIN300 MG PO; +PLAVIX75 MG PO
== END 2019-10-23 11:40 | disposition home or self-care (01) ==
LOC: ORSCSDS 09:10
PROVIDERS: Student in an Organized Health Care Education/Training Program
PROC: 0DBN8ZX Excision of Sigmoid Colon, Via Natural or Artificial Opening Endoscopic, Diagnostic (ICD-10-PCS; principal; 2019-10-23 10:15)
PROC: 0DBH8ZX Excision of Cecum, Via Natural or Artificial Opening Endoscopic, Diagnostic (ICD-10-PCS; principal; 2019-10-23 10:15)
PROC: 0DBP8ZX Excision of Rectum, Via Natural or Artificial Opening Endoscopic, Diagnostic (ICD-10-PCS; principal; 2019-10-23 10:15)
PROC: 0DBC8ZX Excision of Ileocecal Valve, Via Natural or Artificial Opening Endoscopic, Diagnostic (ICD-10-PCS; principal; 2019-10-23 10:15)
PROC: 0DBL8ZX Excision of Transverse Colon, Via Natural or Artificial Opening Endoscopic, Diagnostic (ICD-10-PCS; principal; 2019-10-23 10:15)
DX: Z86.010 Personal history of colon polyps (principal); D12.5 Benign neoplasm of sigmoid colon; D12.0 Benign neoplasm of cecum; D12.3 Benign neoplasm of transverse colon; D12.8 Benign neoplasm of rectum; I25.10 Atherosclerotic heart disease of native coronary artery without angina pectoris; I10 Essential (primary) hypertension; E11.9 Type 2 diabetes mellitus without complications; J44.9 Chronic obstructive pulmonary disease, unspecified; Z79.899 Other long term (current) drug therapy; Z79.84 Long term (current) use of oral hypoglycemic drugs; Z79.82 Long term (current) use of aspirin; E66.01 Morbid (severe) obesity due to excess calories; Z68.41 Body mass index [BMI] 40.0-44.9, adult; Z79.4 Long term (current) use of insulin
CPT/HCPCS: 82947; 88305; J2370; J2405; J2704; J7120

== ENCOUNTER 2020-01-29 10:55 | Inpatient (IN) | payer MEDICARE ==
[~2020-01-29] VITALS: Ht 193 cm; Wt 154.2 kg
[~2020-01-29 10:55] MED LIST changes: +BASAGLAR K100 UNIT/1 SC
[2020-01-29 11:56] LABS: BASOPHILS ABSOLUTE AUTO 0.05 K/mm3 (0.00-0.23); BASOPHILS PERCENT AUTO 1 % (0-2); EOSINOPHILS ABSOLUTE AUTO 0.16 K/mm3 (0.00-0.68); EOSINOPHILS PERCENT AUTO 2 % (0-6); Hematocrit 42.2 % (37.0-53.0); Hemoglobin 13.4 g/dL (13.5-17.5); IMMATURE GRAN PERCENT AUTO 1 % (0-1); LYMPHOCYTES ABSOLUTE AUTO 1.72 K/mm3 (0.84-5.20); LYMPHOCYTES PERCENT AUTO 18 % (21-46); MONOCYTES ABSOLUTE AUTO 0.92 K/mm3 (0.16-1.47); MONOCYTES PERCENT AUTO 10 % (4-13); Mean Corpuscular HGB 29.8 pg (26.0-34.0); Mean Corpuscular HGB Conc 31.8 g/dL (31.5-36.5); Mean Corpuscular Volume 94 fL (80-100); Mean Platelet Volume 10.3 fL (9.1-12.4); NEUTROPHILS ABSOLUTE AUTO 6.75 K/mm3 (1.96-9.15); NEUTROPHILS PERCENT AUTO 70 % (41-73); Platelet Count 268 K/mm3 (150-400); RDW Coefficient Variation 13.6 % (11.7-14.2); RDW Standard Deviation 46.9 fL (35.1-46.3)
[2020-01-29 12:18] LABS: Alanine Aminotransfer (ALT/SGP 22 U/L (12-78); Albumin, Blood 2.7 g/dL (3.4-5.0); Albumin/Globulin Ratio 0.5 (0.8-1.8); Alk Phos 72 U/L (50-136); Anion Gap 5 mmol/L (6-16); Aspartate Aminotrans (AST/SGOT 21 U/L (12-37); Bilirubin, Total 0.2 mg/dL (0.1-1.0); Blood Urea Nitrogen 27 mg/dL (8-24); Bun/Creatinine Ratio 22.1 (12.0-20.0); CO2, Blood 32 mmol/L (21-32); Calcium, Blood 9.2 mg/dL (8.5-10.1); Chloride, Blood 97 mmol/L (98-108); Creatinine, Blood 1.22 mg/dL (0.60-1.20); Globulin, Blood 5.9 g/dL (2.2-4.0); Glomerular Filtration Rate >60 (60-); Glucose, Blood 58 mg/dL (70-99); Potassium, Blood 4.3 mmol/L (3.5-5.5); Sodium, Blood 134 mmol/L (136-145); Total Protein, Blood 8.6 g/dL (6.4-8.2)
[2020-01-29] MEDS ORDERED: Bumetanide2 MG PO (14:20)
[2020-01-29] MEDS ORDERED: LOSA50 PO (14:21)
[2020-01-29] MEDS ORDERED: SITA100T2 PO (14:21)
[2020-01-29] MEDS ORDERED: NOVOLOG FL100 UNIT/3 SC (14:22)
[2020-01-29] MEDS ORDERED: Klor-Con 1010 MEQ PO (14:22)
--- NOTE | 2020-01-29 17:58 | NUR ---
SHIFT SUMMARY PT ADMITTED FOR ABSCESS OF THE LEFT ELBOW. PT HAS A HX OF MRSA AND HAS HAD MRSA IN THIS ELBOW BEFORE. HE IS RECEIVING VANCO AND FLUIDS. HE IS A/O X2 AND HAS A HX TBI. HE USES A CANE TO AMBULATE BUT IS UNSTEADY ON HIS FEET. HE HAS A BOOT ON HIS RIGHT FOOT DUE TO HAVING TOES AMPUTATED. CURRENTLY HE IS FATIGUED AND IS RESTING IN BED WITH HIS CALL LIGHT IN REACH. WILL CONTINUE TO MONITOR.
--- NOTE | 2020-01-29 22:41 | NUR ---
"EMMA" CALLED RE UPDATE OF PT CONDITION. REQUESTED MD/NURSE TO CALL BACK IN THE AM AROUND 10 AM. WILL PASS THIS REQUEST ON TO AM NURSE. PT RESTING QUIETLY AT THIS TIME. CALL LIGHT IN REACH
--- NOTE | 2020-01-30 03:31 | NUR ---
SHIFT SUMMARY ISOLATION STATUS CHANGED TO ACTIVE PER MD ORDER. ALERT AND ORIENTED, BUT POOR HISTORIAN. CALLED EARLIER IN SHIFT (PT VERBALIZED THAT IT WAS OK TO TALK WITH HER). SHE REQUESTED MD/NURSE IN THE AM TO DISCUSS PT STATUS AROUND 10 AM. WILL PASS THIS ON TO AM NURSE FOR F/U. [facility] PULLED IV OUT, HAD ONLY RECEIVED ABOUT 1/2 OF FLUID. PAVING MACHINE OPERATOR MD NOTIFIED AND WILL HOLD IV PLACEMENT UNTIL LATER. OTHER STAFF VOICED PT DIFFICULT TO DEAL WITH. CURRENTLY RESTING QUIETLY. CALL LIGHT IN REACH
[2020-01-30 06:53] LABS: Hematocrit 40.2 % (37.0-53.0); Hemoglobin 12.8 g/dL (13.5-17.5); Mean Corpuscular HGB 29.5 pg (26.0-34.0); Mean Corpuscular HGB Conc 31.8 g/dL (31.5-36.5); Mean Corpuscular Volume 93 fL (80-100); Mean Platelet Volume 10.1 fL (9.1-12.4); Platelet Count 238 K/mm3 (150-400); RDW Coefficient Variation 13.2 % (11.7-14.2); RDW Standard Deviation 45.2 fL (35.1-46.3); Red Blood Cell Count 4.34 M/mm3 (4.30-5.90); White Blood Cell Count 8.37 K/mm3 (4.00-11.30)
[2020-01-30 07:16] LABS: Anion Gap 5 mmol/L (6-16); Blood Urea Nitrogen 21 mg/dL (8-24); CO2, Blood 30 mmol/L (21-32); Calcium, Blood 9.1 mg/dL (8.5-10.1); Chloride, Blood 102 mmol/L (98-108); Creatinine, Blood 1.05 mg/dL (0.60-1.20); Glomerular Filtration Rate >60 (60-); Glucose, Blood 76 mg/dL (70-99); Potassium, Blood 4.2 mmol/L (3.5-5.5); Sodium, Blood 137 mmol/L (136-145)
--- NOTE | 2020-01-30 08:15 | NUR ---
01/30/20 0800 i attempted to put new iv in pt's right forearm since he is getting vancomycin pt refused and demanded that i could only put it in this hand . he was going to to refuse all antibiotics if i didnt put it in his hand. he doesnt seem to understand the importance of iv placement. he was more worried about his breakfast and when it was going to get here. and to make sure i did not delay his breakfast doing the iv placement
--- NOTE | 2020-01-30 16:22 | NUR ---
Shift Summary A/Ox3, pleasant with care. Up with SBA, does not use call light for assistance with ambulation, but uses it for other needs. Medicated for lower back pain of 8/10 per EMAR with moderately good relief. Tolerating meals well. No acute concerns or compliants. Will continue to monitor.
--- NOTE | 2020-01-30 17:42 | NUR ---
WOUND CULTURE, BACTERIAL RECEIVED VERBAL ORDER FOR WOUND CX, BACTERIAL OF L ELBOW FROM DR. Hanny AYALA.
--- NOTE | 2020-01-31 07:40 | NUR ---
SHIFT SUMMARY PATIENT WITH FLAT AFFECT THROUGHOUT THE NIGHT. DRESSING TO PATIENT'S LEFT ELBOW CHANGED TWICE THROUGHOUT THE NIGHT TO KEEP IT CLEAN, DRY, AND INTACT. PATIENT APPEARED TO NAP ON AND OFF THROUGHOUT THE NIGHT. THROUGHOUT THE NIGHT PATIENT REQUIRED 4L OF O2 TO MAINTAIN O2 SATURATION. RESPIRTORY THERAPY NOTIFIED AND CAME TO ASSESS PATIENT AND PROVIDE A BREATHING TX. DR GARZA NOTIFIED THIS AM OFPATIENT'S INCREASED O2 NEEDS AND SHE ORDERED A BD PROTOCOL FOR RT TO MANAGE BREATHING TX. PATIENT CURRENTLY SITTING UP AT THE EDGE OF THE BED. REPORT GIVEN TO ONCOMING RN.
[2020-01-31 08:32] LABS: Creatinine, Blood 1.02 mg/dL (0.60-1.20); Vancomycin, Trough 19.2 ug/mL (5.0-10.0)
--- NOTE | 2020-01-31 19:17 | NUR ---
SHIFT SUMMARY: PATIENT IS S/P NON WITNESSED FALL THIS EVENING, NO INJURY NOTED, ABLE TO GET HIMSELF UP OFF FLOOR. BREATHING BETTER SINCE ADDITION OF BD PROTOCOL, USING O2 @ 2 L/MIN NC PRN ONLY. C/O BACK PAIN; MEDICATED PER EMAR WITH ADEQUATE RELIEF. PATIENT STATED DR. AYALA CAME TO BEDSIDE THIS AFTERNOON, CHANGED L ELBOW DRESSING. L FOOT IN CAST. TOLERATING PO INTAKE. DANGLED AT BEDSIDE MOST OF THIS SHIFT. IS ANXIOUS TO GO HOME.
--- NOTE | 2020-01-31 20:20 | NUR ---
01/31/202004 Dr Kumar was notified of patient fall at 1830 with no injury. No new orders needed.
--- NOTE | 2020-02-01 08:04 | NUR ---
SUMMARY PT WITHOUT C/O THIS AM. SLEPT OFF AND ON. NON COMPLIANT WITH URINAL USE. STATES HOPING TO BE DISCHARGED HOME TODAY.
[2020-02-01 09:27] LABS: Vancomycin, Trough 22.6 ug/mL (5.0-10.0)
[2020-02-01] MEDS ORDERED: BACTRIM DS TAB1 EAC3 PO (13:53)
--- NOTE | 2020-02-01 14:05 | NUR ---
PT TO DISCHARGE HOME. NURSE WENT OVER DC INSTRUCTIONS WITH PATIENT AND EDCUCATED HIM REGARDING NEW ABX. MEDS FAXED TO PHARMACY OF CHOICE. IV REMOVED WITH NO SS OF INFECTION NOTED. PATIENT TO WHEEL DOWN AND BE TAKEN HOME BY .
== END 2020-02-01 14:31 | disposition home or self-care (01) | DRG 558 ==
LOC: ER 10:55 → MEDS 10:56
PROVIDERS: Nurse Practitioner Acute Care; Pharmacist; Physician Assistant; ADMIT Internal Medicine
PROC: 0M940ZX Drainage of Left Elbow Bursa and Ligament, Open Approach, Diagnostic (ICD-10-PCS; principal; 2020-01-30)
DX: M71.122 Other infective bursitis, left elbow (principal); L03.114 Cellulitis of left upper limb; E11.65 Type 2 diabetes mellitus with hyperglycemia; G47.33 Obstructive sleep apnea (adult) (pediatric); I10 Essential (primary) hypertension; Z86.14 Personal history of Methicillin resistant Staphylococcus aureus infection; Z79.4 Long term (current) use of insulin; B95.61 Methicillin susceptible Staphylococcus aureus infection as the cause of diseases classified elsewhere; I25.10 Atherosclerotic heart disease of native coronary artery without angina pectoris; E78.5 Hyperlipidemia, unspecified; J44.9 Chronic obstructive pulmonary disease, unspecified; K21.9 Gastro-esophageal reflux disease without esophagitis; E66.01 Morbid (severe) obesity due to excess calories; Z95.5 Presence of coronary angioplasty implant and graft; Z95.1 Presence of aortocoronary bypass graft; F17.210 Nicotine dependence, cigarettes, uncomplicated; E11.42 Type 2 diabetes mellitus with diabetic polyneuropathy; Z91.19 Patient's noncompliance with other medical treatment and regimen; Z68.39 Body mass index [BMI] 39.0-39.9, adult
CPT/HCPCS: 36415; 73080; 73201; 80048; 80053; 80202; 82565; 82947; 85025; 85027; 87070; 87075; 87077; 87147; 87186; 87205; 94640; 94760; 96365; 96366; 96372; 96374; 99285-25; A9270-GY; G0378; J1650; J3370; J7030; J7050; Q9967

== ENCOUNTER 2020-03-09 10:46 | Inpatient (IN) | payer MEDICARE ==
[~2020-03-09] VITALS: Ht 193 cm; Wt 154.6 kg
[~2020-03-09 10:46] MED LIST changes: -Aspirin EC81 MG PO; +BACTRIM DS TAB1 EAC3 PO; -BASAGLAR K100 UNIT/1 SC; -ESOMEPRAZOLE MA40 MG PO; -Glimepiride2 MG PO; -Lopressor 50 mg50 MG PO; -NEURONTIN300 MG PO; -PLAVIX75 MG PO; -Pravastatin Sod80 MG PO
[2020-03-09 16:15] LABS: BASOPHILS ABSOLUTE AUTO 0.05 K/mm3 (0.00-0.23); BASOPHILS PERCENT AUTO 0 % (0-2); EOSINOPHILS ABSOLUTE AUTO 0.14 K/mm3 (0.00-0.68); EOSINOPHILS PERCENT AUTO 1 % (0-6); Hematocrit 42.9 % (37.0-53.0); Hemoglobin 13.4 g/dL (13.5-17.5); IMMATURE GRAN ABSOLUTE AUTO 0.06 K/mm3 (0.00-0.10); IMMATURE GRAN PERCENT AUTO 1 % (0-1); LYMPHOCYTES ABSOLUTE AUTO 2.28 K/mm3 (0.84-5.20); LYMPHOCYTES PERCENT AUTO 20 % (21-46); MONOCYTES ABSOLUTE AUTO 1.24 K/mm3 (0.16-1.47); MONOCYTES PERCENT AUTO 11 % (4-13); Mean Corpuscular HGB 29.1 pg (26.0-34.0); Mean Corpuscular HGB Conc 31.2 g/dL (31.5-36.5); Mean Corpuscular Volume 93 fL (80-100); Mean Platelet Volume 10.3 fL (9.1-12.4); NEUTROPHILS ABSOLUTE AUTO 7.49 K/mm3 (1.96-9.15); NEUTROPHILS PERCENT AUTO 67 % (41-73); Platelet Count 240 K/mm3 (150-400); RDW Coefficient Variation 14.2 % (11.7-14.2); RDW Standard Deviation 48.7 fL (35.1-46.3); White Blood Cell Count 11.26 K/mm3 (4.00-11.30)
[2020-03-09 16:31] LABS: Albumin/Globulin Ratio 0.5 (0.8-1.8); Bilirubin, Total 0.4 mg/dL (0.1-1.0); Calcium, Blood 9.2 mg/dL (8.5-10.1); Creatinine, Blood 1.58 mg/dL (0.60-1.20); Globulin, Blood 5.5 g/dL (2.2-4.0); Potassium, Blood 4.5 mmol/L (3.5-5.5); Total Protein, Blood 8.5 g/dL (6.4-8.2)
[2020-03-09] MEDS ORDERED: Norco 10-325 T1 EACH PO (17:24)
[2020-03-09] MEDS ORDERED: PLAVIX75 MG PO (17:24)
[2020-03-09] MEDS ORDERED: Lopressor 50 mg50 MG PO (17:25)
[2020-03-09] MEDS ORDERED: ROPI.25 PO (17:25)
[2020-03-09 17:26] LABS: Base Excess Venous 6.6 mmol/L; Bicarbonate Venous 28.5 mmol/L (24.0-30.0); PCO2 Venous 55.7 mmHg (38-42); PO2 Venous 41.2 mmHg (38-42); pH Blood Venous 7.37 (7.34-7.37)
[2020-03-09] MEDS ORDERED: GLIM2 PO (17:26)
[2020-03-09] MEDS ORDERED: NOVOLOG FL100 UNIT/3 SC (17:27)
[2020-03-09] MEDS ORDERED: NEURONTIN300 MG PO (17:28)
[2020-03-09] MEDS ORDERED: BASAGLAR K100 UNIT/1 SC (17:28)
[2020-03-09] MEDS ORDERED: METF500C PO (17:31)
[2020-03-09] MEDS ORDERED: Pravastatin Sod80 MG PO (17:31)
[2020-03-09] MEDS ORDERED: Bumetanide2 MG PO (17:31)
[2020-03-09] MEDS ORDERED: SITA100T2 PO (17:32)
[2020-03-09] MEDS ORDERED: ESOMEPRAZOLE MA40 MG PO (17:34)
[2020-03-09] MEDS ORDERED: Klor-Con 1010 MEQ PO (17:34)
[2020-03-09] MEDS ORDERED: Aspirin EC81 MG PO (17:35)
[2020-03-09] MEDS ORDERED: LOSA50 PO (17:35)
--- NOTE | 2020-03-10 00:23 | NUR ---
pt new admit arrived to unit at 2124. pt is a/o x4, however pt falls asleep while sitting upright. pain medication held for now due to drowsiness. pt came in with unna boot in place on right lower extremity. pt states it cannot be taken off. pt states it is put on there for his ulcer in right foot. cannot access this because cast cannot be taken off. 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 per pt, this was amputated "years ago". pt has ble edema 3+. pt reports numbness in ble. swelling and redness on left elbow/arm. no drainage noted. pt has sleep apnea, pt denies using cpap at home. pt signed a cpap/bipap refusal form. pt does not wear o2 at home. rn put O2 on pt due to O2 desatting to the low 80's. currently on 4L O2 with cont. pulse ox monitor. pt resting in bed now.
[2020-03-10 05:06] LABS: PCO2 Arterial 46.8 mmHg (35-45); PO2 Arterial 52.8 mmHg (80-100); pH Blood Arterial 7.43 (7.35-7.45)
[2020-03-10 05:20] LABS: BASOPHILS ABSOLUTE AUTO 0.03 K/mm3 (0.00-0.23); BASOPHILS PERCENT AUTO 0 % (0-2); EOSINOPHILS ABSOLUTE AUTO 0.06 K/mm3 (0.00-0.68); EOSINOPHILS PERCENT AUTO 1 % (0-6); Hemoglobin 12.4 g/dL (13.5-17.5); IMMATURE GRAN ABSOLUTE AUTO 0.03 K/mm3 (0.00-0.10); IMMATURE GRAN PERCENT AUTO 0 % (0-1); LYMPHOCYTES ABSOLUTE AUTO 1.88 K/mm3 (0.84-5.20); LYMPHOCYTES PERCENT AUTO 19 % (21-46); MONOCYTES ABSOLUTE AUTO 1.07 K/mm3 (0.16-1.47); MONOCYTES PERCENT AUTO 11 % (4-13); Mean Corpuscular HGB 29.3 pg (26.0-34.0); Mean Corpuscular HGB Conc 31.8 g/dL (31.5-36.5); Mean Corpuscular Volume 92 fL (80-100); Mean Platelet Volume 10.5 fL (9.1-12.4); NEUTROPHILS ABSOLUTE AUTO 6.96 K/mm3 (1.96-9.15); NEUTROPHILS PERCENT AUTO 69 % (41-73); Platelet Count 206 K/mm3 (150-400); RDW Coefficient Variation 14.3 % (11.7-14.2); RDW Standard Deviation 48.6 fL (35.1-46.3); Red Blood Cell Count 4.23 M/mm3 (4.30-5.90); White Blood Cell Count 10.03 K/mm3 (4.00-11.30)
[2020-03-10 05:52] LABS: Bun/Creatinine Ratio 22.1 (12.0-20.0); Calcium, Blood 8.7 mg/dL (8.5-10.1); Creatinine, Blood 1.36 mg/dL (0.60-1.20); Potassium, Blood 4.3 mmol/L (3.5-5.5)
--- NOTE | 2020-03-10 15:32 | NUR ---
PT IS HAVING SURGERY AT 1525.
--- NOTE | 2020-03-10 15:42 | NUR ---
IV SITE WITH DRESSING SOILED. FLUSHED WELL. BLOOD RETURN NOTED. PLACED NEW DRESSING AND FLUSHED WITH 10ML NS. PT DENIES TENDERNESS. NO SWELLING OR REDNESS NOTED.
--- NOTE | 2020-03-10 18:21 | NUR ---
PT RETURNED FROM SURGERY. I&D ON HIS L ELBOW. WOUND VAC DRAINING WAIT JUNIOR WRAP. PT AWAKE AND NO C/O PAIN
--- NOTE | 2020-03-10 18:28 | NUR ---
SHIFT SUMMARY PT CALLS APPROPRIATELY. PT HAD I&D DONE TODAY OF HIS L ELBOW- WOUND VAC IS IN PLACED. VSS. ELEVATE THE AFFECTED SITE PER DR MCKEON. PT CONTINUOSLY TAKES OFF O2 VIA NC- ON 2L. DR GOLD CONSULTED FOR PT OSTEOMYELITIS ON ELBOW. BED ALARM ON AND CALL LIGHT WITHIN REACH.
--- NOTE | 2020-03-10 19:50 | NUR ---
ASSUMED CARE. CAMILO IS VERY FIGGITY, PULLING AT ALL OF HIS TUBES. REMOVED OXYGEN STATES HE DOES NOT USE IT AT HOME, ALSO DOES NOT LIKE THE POSITION OF HIS IV, STATES IT IS BOTHERING HIM. REMOVED OLD IV AND STARTED NEW ONE 20G IN FA. FLUSHED WELL. DENIES ANY PAIN OR DISCOMFORT. WOUND VAC TO LEFT ELBOW, UNNA BOOT TO RIGHT FOOT, BOTH DRESSINGS ARE CDI. WOUND VAC AT 120MMGH SUCTION. IV STILL INFUSING VANCO. EDEMA TO LEFT ARM AND BLE. LUNGS CLEAR, HR NORMAL. NO NEEDS NOTED AT THIS TIME. CALL LIGHT IN REACH.
--- NOTE | 2020-03-11 05:22 | NUR ---
SHIFT SUMMARY: AOX3, 1 ASSIST IN ROOM. WOUND VAC TO LEFT ELBOW REMAINED INTACT WITH SCANT AMOUNT OF BLOODY DRAINAGE, TO LITTLE TO COUNT. IV WAS INFUSING NS UP TO AROUND 2 AM HE PULLED OUT HIS IV THAT WAS JUST PLACED IN FA, HE REFUSED TO HAVE ANOTHER IV PLACED. UNNA BOOT REMAINED INTACT. BLOOD SUGARS IN 200'S. VS WNL, AFEBRILE. WEANED OFF OXYGEN. DENIED ANY PAIN OR DISCOMFORT. GOOD URINE OUTPUT. ASKING ABOUT WHEN HE CAN GO HOME. SLEPT ONLY FOR A COUPLE OF HOURS, THEN HE WAS UP THE REST OF NIGHT. NO OTHER CHANGES TO REPORT. CALL LIGHT REMAINED IN REACH.
[2020-03-11 05:39] LABS: Free Thyroxine 1.14 ng/dL (0.70-1.60); Thyroid Stimulating Hormone 0.729 uIU/mL (0.360-4.800)
[2020-03-11 05:49] LABS: Vancomycin, Trough 20.9 ug/mL (5.0-10.0)
--- NOTE | 2020-03-11 17:38 | NUR ---
SHIFT SUMMARY PT AOX4. CALLS APPROPRIATELY. PT WANTED TO GO HOME TODAY; HOWEVER DR GOLD HAS TO BE CONSULTED- HE CAME BY TODAY TO DISCUSSED THE ANTIBIOTIC REGIMEN FOR PATIENT FOR 6 WEEKS AN OUTPATIENT DOWN AT [facility] AND PICC LINE PLACEMENT. PT IS NOW STARTED ON ROCEPHIN AND DC'D THE VANCO. PT WEANED OFF O2 AND SATS ABOVE 90S AND NO SIGNS OF DIFFICULTY BREATHING. PT C/O PAIN; MEDICATED X2. BED IS IN THE LOWEST POSITION AND CALL LIGHTS WITHIN REACH.
--- NOTE | 2020-03-11 20:35 | NUR ---
ASSUMED CARE. TARA WAS HOPEING TO GO HOME TODAY. AOX3. STATES HE WILL GO HOME WHEN HE GETS THE PICC LINE PLACED. STATES PAIN 10/10 IN ELBOW. LUNG SOUNDS DIMINISHED T/O, NO SOB NOTED. COUGH NON-PRODUCTIVE. HR REGULAR. EDEMA IN LEGS AND LEFT ARM. DRESSING TO ELBOW STILL INTACT, SUCTION TO WOUND VAC AT 120MMGH, BLOODY SCANT DRAINAGE. UNNA BOOT TO RIGHT LEG INTACT WITH STABILITY BOOT. GOOD URINE OUTPUT NOTED. WILL MEDICATE FOR PAIN. CALL LIGHT IN REACH.
--- NOTE | 2020-03-11 20:54 | NUR ---
SPOKE TO DR. SHI REGARDING PAIN MANAGEMENT. PATIENT ASKING FOR HIS HOME DOSAGE, WHICH DR. SHI STATES WHAT HE IS GETTING IS EQUAL TO HIS HOME DOSAGE, REPORTED HE STATES PAIN IS 9/10 AFTER GETTING MED. EXTRA DOSE IS ORDERED FOR NOW.
--- NOTE | 2020-03-12 06:29 | NUR ---
SHIFT SUMMARY: TARA IS DOING WELL, VS WNL, AFEBRILE. PAIN AVERAGE HAS BEEN HIGH IN ELBOW, HAD TO CALL AND GET AN EXTRA DOSE OF NORCO TO GET PAIN UNDER CONTROL. WOUND VAC HAS REMAINED INTACT, DRAINING BLOODY DRAINAGE SCANT AMOUNT NOT ENOUGH TO COUNT. VS WNL, AFEBRILE. AWAITING TO HAVE PICC LINE PLACED SO HE CAN BE DISCHARGED HOME. NO ACUTE CHANGES OCCURRED THIS SHIFT. CALL LIGHT REMAINED IN REACH.
[2020-03-12] MEDS ORDERED: HUMALOG KW100 UNIT/1 SC (12:18)
[2020-03-12] MEDS ORDERED: CEFTRIAXONE IV (12:22)
[2020-03-12] MEDS ORDERED: NICOTINE1 EAC1 TOP (12:25)
[2020-03-12] MEDS ORDERED: SENN187 PO (12:26)
[2020-03-12] MEDS ORDERED: PROBIOTIC PO (12:27)
--- NOTE | 2020-03-12 14:07 | NUR ---
DISCHARGE INSTRUCTIONS GIVEN TO PATIENT, ALL QUESTIONS ANSWERED. IV REMOVED. APPOINTMENTS SCHEDULED FOR HOME HEALTH TO FOLLOW-UP FOR WOUND-VAC, ATC FOR DAILY IV ABX, DR BRICEÑO FOR 03/26/20 @ [address] GOLD's OFFICE FAXED REQUESTING APPT IN 4 WEEKS WITH RX/REFERAL INCLUDED. AWAITING FOR WOUND VAC APPROVAL FOR PATIENT TO PHYSICALLY DISCHARGE. PATIENT IS WAITING IN ROOM AT THIS TIME.
--- NOTE | 2020-03-12 15:36 | NUR ---
HOSPITAL WOUND VAC REMOVED. CLEANSED WOUND WITH WOUND CLEANSED. APPLIED NEW WOUND VAC FOR HOME USE. PATIENT NOW WAITING IN ROOM TO BE ESCORTED OUT FOR DISCHARGE.
--- NOTE | 2020-03-12 15:47 | NUR ---
patient discharged home at 1547.
== END 2020-03-12 15:46 | disposition home or self-care (01) | DRG 981 ==
LOC: ER 10:46 → MEDS 10:47 → ENPENDDIS 03-12 09:36 → MEDS 03-12 15:46
PROVIDERS: Emergency Medicine; Orthopaedic Surgery; Pharmacist; Physician Assistant; ADMIT Internal Medicine
PROC: 0PDL0ZZ Extraction of Left Ulna, Open Approach (ICD-10-PCS; principal; 2020-03-10 09:30)
PROC: 02HV33Z Insertion of Infusion Device into Superior Vena Cava, Percutaneous Approach (ICD-10-PCS; 2020-03-12)
PROC: 4A02X4A Measurement of Cardiac Electrical Activity, Guidance, External Approach (ICD-10-PCS; 2020-03-12)
DX: E11.69 Type 2 diabetes mellitus with other specified complication (principal); J96.22 Acute and chronic respiratory failure with hypercapnia; M86.8X2 Other osteomyelitis, upper arm; Z68.41 Body mass index [BMI] 40.0-44.9, adult; E66.2 Morbid (severe) obesity with alveolar hypoventilation; L03.114 Cellulitis of left upper limb; M71.122 Other infective bursitis, left elbow; B95.62 Methicillin resistant Staphylococcus aureus infection as the cause of diseases classified elsewhere; Z20.828 Contact with and (suspected) exposure to other viral communicable diseases; E11.42 Type 2 diabetes mellitus with diabetic polyneuropathy; G25.81 Restless legs syndrome; F17.210 Nicotine dependence, cigarettes, uncomplicated; J44.9 Chronic obstructive pulmonary disease, unspecified; K21.9 Gastro-esophageal reflux disease without esophagitis; E78.5 Hyperlipidemia, unspecified; E11.22 Type 2 diabetes mellitus with diabetic chronic kidney disease; I12.9 Hypertensive chronic kidney disease with stage 1 through stage 4 chronic kidney disease, or unspecified chronic kidney disease; I25.10 Atherosclerotic heart disease of native coronary artery without angina pectoris; N18.30 Chronic kidney disease, stage 3 unspecified; Z79.02 Long term (current) use of antithrombotics/antiplatelets; N28.9 Disorder of kidney and ureter, unspecified; Z79.82 Long term (current) use of aspirin; Z79.4 Long term (current) use of insulin; Z79.891 Long term (current) use of opiate analgesic; Z79.899 Other long term (current) drug therapy; Z89.422 Acquired absence of other left toe(s); Z95.1 Presence of aortocoronary bypass graft; Z95.5 Presence of coronary angioplasty implant and graft; Z88.8 Allergy status to other drugs, medicaments and biological substances; Z91.19 Patient's noncompliance with other medical treatment and regimen
CPT/HCPCS: 36415; 36569; 36600; 73201; 80048; 80053; 80202; 82803; 82947; 83605; 84439; 84443; 85025; 85651; 86140; 87040; 87070; 87071; 87075; 87077; 87147; 87186; 87205; 94640; 94762; 96365; 96366; 99284-25; A9270; A9270-GY; C1751; G0008; J0696; J1100; J1650; J2250; J2405; J2704; J3010; J3370; J7030; J7050; J7120; Q2038; Q9967; U0004

== ENCOUNTER 2020-03-13 09:41 | Day surgery (SDC) | payer MEDICARE ==
[~2020-03-13 09:41] MED LIST changes: +Aspirin EC81 MG PO; +BASAGLAR K100 UNIT/1 SC; +Bumetanide2 MG PO; +CEFTRIAXONE IV; +ESOMEPRAZOLE MA40 MG PO; +GLIM2 PO; +HUMALOG KW100 UNIT/1 SC; +Klor-Con 1010 MEQ PO; +Lopressor 50 mg50 MG PO; +NEURONTIN300 MG PO; +NICOTINE1 EAC1 TOP; +NOVOLOG FL100 UNIT/3 SC; +PLAVIX75 MG PO; +PROBIOTIC PO; +Pravastatin Sod80 MG PO; +SENN187 PO
== END 2020-03-13 10:14 | disposition home or self-care (01) ==
LOC: ATC 09:41
DX: M86.02 Acute hematogenous osteomyelitis, humerus (principal); Z88.8 Allergy status to other drugs, medicaments and biological substances; E11.40 Type 2 diabetes mellitus with diabetic neuropathy, unspecified; E78.5 Hyperlipidemia, unspecified; J44.9 Chronic obstructive pulmonary disease, unspecified; G47.33 Obstructive sleep apnea (adult) (pediatric); K21.9 Gastro-esophageal reflux disease without esophagitis; E66.01 Morbid (severe) obesity due to excess calories; Z79.82 Long term (current) use of aspirin; Z79.4 Long term (current) use of insulin; Z79.899 Other long term (current) drug therapy; F17.210 Nicotine dependence, cigarettes, uncomplicated; J96.22 Acute and chronic respiratory failure with hypercapnia; Z91.19 Patient's noncompliance with other medical treatment and regimen; I25.10 Atherosclerotic heart disease of native coronary artery without angina pectoris; Z95.5 Presence of coronary angioplasty implant and graft; I13.0 Hypertensive heart and chronic kidney disease with heart failure and stage 1 through stage 4 chronic kidney disease, or unspecified chronic kidney disease; I50.810 Right heart failure, unspecified; E11.22 Type 2 diabetes mellitus with diabetic chronic kidney disease; N18.30 Chronic kidney disease, stage 3 unspecified; G25.81 Restless legs syndrome
CPT/HCPCS: 96365; J0696

== ENCOUNTER 2020-03-14 03:50 | Day surgery (SDC) | payer MEDICARE ==
--- NOTE | 2020-03-14 10:55 | NUR ---
PT STATES WOUND VAC HAS BEEN SHOWING BLOCKAGE, BUT PT STATES HE CHANGED THE CANISTER AND HIS DAUGHTER CHANGED THE DRSG. JACKY WATKINS RN FROM MED FLOOR TO ROOM TO LOOK AT WOUND VAC, STATES THAT IT HAS SUCTION AND NO LEAKS, RN STATES HIS BELIEF IT IS MAYBE A SENSOR ON VAC. PT STATES HE WILL CALL VAC CUSTOMER SERVICE TO HAVE NEW ONE SENT TO HOME.
== END 2020-03-14 10:45 | disposition home or self-care (01) ==
LOC: ATC 03:50
DX: M86.02 Acute hematogenous osteomyelitis, humerus (principal); I12.9 Hypertensive chronic kidney disease with stage 1 through stage 4 chronic kidney disease, or unspecified chronic kidney disease; E11.40 Type 2 diabetes mellitus with diabetic neuropathy, unspecified; E78.5 Hyperlipidemia, unspecified; F17.210 Nicotine dependence, cigarettes, uncomplicated; J44.9 Chronic obstructive pulmonary disease, unspecified; E66.01 Morbid (severe) obesity due to excess calories; E11.22 Type 2 diabetes mellitus with diabetic chronic kidney disease; J96.02 Acute respiratory failure with hypercapnia; I25.10 Atherosclerotic heart disease of native coronary artery without angina pectoris; G25.81 Restless legs syndrome; Z88.8 Allergy status to other drugs, medicaments and biological substances; Z79.4 Long term (current) use of insulin; Z79.899 Other long term (current) drug therapy
CPT/HCPCS: 96365; J0696

== ENCOUNTER 2020-03-16 00:07 | Day surgery (SDC) | payer MEDICARE | END 2020-03-16 10:05 | disposition home or self-care (01) | LOC: ATC 00:07 | DX: M86.02 Acute hematogenous osteomyelitis, humerus (principal); E11.40 Type 2 diabetes mellitus with diabetic neuropathy, unspecified; E78.5 Hyperlipidemia, unspecified; G47.33 Obstructive sleep apnea (adult) (pediatric); J44.9 Chronic obstructive pulmonary disease, unspecified; K21.9 Gastro-esophageal reflux disease without esophagitis; E66.01 Morbid (severe) obesity due to excess calories; F17.210 Nicotine dependence, cigarettes, uncomplicated; J96.22 Acute and chronic respiratory failure with hypercapnia; G25.81 Restless legs syndrome; I25.10 Atherosclerotic heart disease of native coronary artery without angina pectoris; Z88.8 Allergy status to other drugs, medicaments and biological substances; Z79.4 Long term (current) use of insulin; Z79.82 Long term (current) use of aspirin; Z79.899 Other long term (current) drug therapy; Z91.19 Patient's noncompliance with other medical treatment and regimen | CPT/HCPCS: 96365; J0696 ==

== ENCOUNTER 2020-03-17 00:50 | Day surgery (SDC) | payer MEDICARE | END 2020-03-17 22:44 | disposition home or self-care (01) | LOC: ATC 00:50 | DX: M86.02 Acute hematogenous osteomyelitis, humerus (principal); Z88.8 Allergy status to other drugs, medicaments and biological substances; E11.40 Type 2 diabetes mellitus with diabetic neuropathy, unspecified; I25.10 Atherosclerotic heart disease of native coronary artery without angina pectoris; J44.9 Chronic obstructive pulmonary disease, unspecified; E78.5 Hyperlipidemia, unspecified; E66.01 Morbid (severe) obesity due to excess calories; K21.9 Gastro-esophageal reflux disease without esophagitis; Z79.4 Long term (current) use of insulin; Z79.82 Long term (current) use of aspirin; Z79.899 Other long term (current) drug therapy; F17.210 Nicotine dependence, cigarettes, uncomplicated; Z91.19 Patient's noncompliance with other medical treatment and regimen; J96.22 Acute and chronic respiratory failure with hypercapnia; I12.9 Hypertensive chronic kidney disease with stage 1 through stage 4 chronic kidney disease, or unspecified chronic kidney disease; E11.22 Type 2 diabetes mellitus with diabetic chronic kidney disease; N18.30 Chronic kidney disease, stage 3 unspecified | CPT/HCPCS: J0696 ==

== ENCOUNTER → 2020-03-17 | Outpatient (CLI) | payer MEDICARE ==
[2020-03-18 11:34] LABS: Alanine Aminotransfer (ALT/SGP 17 U/L (12-78); Albumin/Globulin Ratio 0.5 (0.8-1.8); Alk Phos 77 U/L (50-136); Anion Gap 8 mmol/L (6-16); Aspartate Aminotrans (AST/SGOT 19 U/L (12-37); Bilirubin, Total 0.2 mg/dL (0.1-1.0); Blood Urea Nitrogen 35 mg/dL (8-24); Bun/Creatinine Ratio 27.8 (12.0-20.0); CO2, Blood 28 mmol/L (21-32); Calcium, Blood 9.2 mg/dL (8.5-10.1); Chloride, Blood 103 mmol/L (98-108); Creatinine, Blood 1.26 mg/dL (0.60-1.20); Globulin, Blood 5.5 g/dL (2.2-4.0); Glomerular Filtration Rate >60 (60-); Glucose, Blood 107 mg/dL (70-99); Potassium, Blood 4.3 mmol/L (3.5-5.5); Sodium, Blood 139 mmol/L (136-145); Total Protein, Blood 8.5 g/dL (6.4-8.2)
== END | disposition home or self-care (01) ==
LOC: LAB 11:00 → LAB SHORT 11:00
PROVIDERS: Internal Medicine Infectious Disease
DX: M86.1 Other acute osteomyelitis (principal); M71.122 Other infective bursitis, left elbow
CPT/HCPCS: 36415; 80053; 86140

== ENCOUNTER → 2020-03-18 | Outpatient (CLI) | payer MEDICARE ==
[2020-03-18 19:41] LABS: BASOPHILS ABSOLUTE AUTO 0.06 K/mm3 (0.00-0.23); BASOPHILS PERCENT AUTO 1 % (0-2); EOSINOPHILS PERCENT AUTO 2 % (0-6); Hematocrit 41.7 % (37.0-53.0); Hemoglobin 12.8 g/dL (13.5-17.5); IMMATURE GRAN ABSOLUTE AUTO 0.08 K/mm3 (0.00-0.10); IMMATURE GRAN PERCENT AUTO 1 % (0-1); LYMPHOCYTES ABSOLUTE AUTO 2.37 K/mm3 (0.84-5.20); LYMPHOCYTES PERCENT AUTO 26 % (21-46); MONOCYTES ABSOLUTE AUTO 0.84 K/mm3 (0.16-1.47); MONOCYTES PERCENT AUTO 9 % (4-13); Mean Corpuscular HGB Conc 30.7 g/dL (31.5-36.5); Mean Corpuscular Volume 94 fL (80-100); Mean Platelet Volume 10.9 fL (9.1-12.4); NEUTROPHILS ABSOLUTE AUTO 5.68 K/mm3 (1.96-9.15); NEUTROPHILS PERCENT AUTO 61 % (41-73); Platelet Count 309 K/mm3 (150-400); RDW Coefficient Variation 14.1 % (11.7-14.2); RDW Standard Deviation 49.1 fL (35.1-46.3); Red Blood Cell Count 4.42 M/mm3 (4.30-5.90); White Blood Cell Count 9.23 K/mm3 (4.00-11.30)
== END | disposition home or self-care (01) ==
LOC: LAB SHORT 11:00 → LAB 11:00
PROVIDERS: Internal Medicine Infectious Disease
DX: M86.9 Osteomyelitis, unspecified (principal); M71.122 Other infective bursitis, left elbow
CPT/HCPCS: 85025; 85651

== ENCOUNTER → 2020-03-24 | Outpatient (CLI) | payer MEDICARE ==
[2020-03-24 18:56] LABS: BASOPHILS ABSOLUTE AUTO 0.08 K/mm3 (0.00-0.23); BASOPHILS PERCENT AUTO 1 % (0-2); EOSINOPHILS ABSOLUTE AUTO 0.23 K/mm3 (0.00-0.68); EOSINOPHILS PERCENT AUTO 2 % (0-6); Hematocrit 42.5 % (37.0-53.0); Hemoglobin 13.3 g/dL (13.5-17.5); IMMATURE GRAN ABSOLUTE AUTO 0.05 K/mm3 (0.00-0.10); IMMATURE GRAN PERCENT AUTO 1 % (0-1); LYMPHOCYTES PERCENT AUTO 27 % (21-46); MONOCYTES ABSOLUTE AUTO 0.66 K/mm3 (0.16-1.47); MONOCYTES PERCENT AUTO 7 % (4-13); Mean Corpuscular HGB 29.2 pg (26.0-34.0); Mean Corpuscular HGB Conc 31.3 g/dL (31.5-36.5); Mean Corpuscular Volume 93 fL (80-100); Mean Platelet Volume 10.9 fL (9.1-12.4); NEUTROPHILS ABSOLUTE AUTO 6.14 K/mm3 (1.96-9.15); NEUTROPHILS PERCENT AUTO 63 % (41-73); Platelet Count 261 K/mm3 (150-400); RDW Coefficient Variation 14.5 % (11.7-14.2); RDW Standard Deviation 49.5 fL (35.1-46.3); Red Blood Cell Count 4.55 M/mm3 (4.30-5.90); White Blood Cell Count 9.76 K/mm3 (4.00-11.30)
[2020-03-24 20:40] LABS: Albumin/Globulin Ratio 0.6 (0.8-1.8); Bilirubin, Total 0.1 mg/dL (0.1-1.0); Bun/Creatinine Ratio 19.7 (12.0-20.0); Calcium, Blood 9.2 mg/dL (8.5-10.1); Creatinine, Blood 1.57 mg/dL (0.60-1.20); Globulin, Blood 4.8 g/dL (2.2-4.0); Potassium, Blood 4.7 mmol/L (3.5-5.5); Total Protein, Blood 7.8 g/dL (6.4-8.2)
== END ==
LOC: LAB 17:43 → LAB SHORT 17:43
PROVIDERS: Internal Medicine Infectious Disease
DX: M86.9 Osteomyelitis, unspecified (principal); M71.122 Other infective bursitis, left elbow
CPT/HCPCS: 80053; 85025

== ENCOUNTER → 2020-03-30 | Outpatient (CLI) | payer MEDICARE ==
[~2020-03-30] MED LIST changes: +CEFD300 PO
[2020-03-30 18:58] LABS: BASOPHILS ABSOLUTE AUTO 0.05 K/mm3 (0.00-0.23); BASOPHILS PERCENT AUTO 1 % (0-2); EOSINOPHILS ABSOLUTE AUTO 0.24 K/mm3 (0.00-0.68); EOSINOPHILS PERCENT AUTO 3 % (0-6); Hematocrit 42.2 % (37.0-53.0); Hemoglobin 13.2 g/dL (13.5-17.5); IMMATURE GRAN ABSOLUTE AUTO 0.03 K/mm3 (0.00-0.10); IMMATURE GRAN PERCENT AUTO 0 % (0-1); LYMPHOCYTES ABSOLUTE AUTO 2.89 K/mm3 (0.84-5.20); LYMPHOCYTES PERCENT AUTO 33 % (21-46); MONOCYTES ABSOLUTE AUTO 0.82 K/mm3 (0.16-1.47); MONOCYTES PERCENT AUTO 9 % (4-13); Mean Corpuscular HGB 29.2 pg (26.0-34.0); Mean Corpuscular HGB Conc 31.3 g/dL (31.5-36.5); Mean Corpuscular Volume 93 fL (80-100); Mean Platelet Volume 11.4 fL (9.1-12.4); NEUTROPHILS ABSOLUTE AUTO 4.67 K/mm3 (1.96-9.15); NEUTROPHILS PERCENT AUTO 54 % (41-73); Platelet Count 224 K/mm3 (150-400); RDW Coefficient Variation 14.6 % (11.7-14.2); RDW Standard Deviation 49.8 fL (35.1-46.3); Red Blood Cell Count 4.52 M/mm3 (4.30-5.90)
[2020-03-30 20:34] LABS: Alanine Aminotransfer (ALT/SGP 23 U/L (12-78); Albumin, Blood 3.1 g/dL (3.4-5.0); Albumin/Globulin Ratio 0.7 (0.8-1.8); Alk Phos 63 U/L (50-136); Anion Gap 11 mmol/L (6-16); Aspartate Aminotrans (AST/SGOT 19 U/L (12-37); Bilirubin, Total 0.3 mg/dL (0.1-1.0); Blood Urea Nitrogen 26 mg/dL (8-24); CO2, Blood 28 mmol/L (21-32); Calcium, Blood 9.2 mg/dL (8.5-10.1); Chloride, Blood 97 mmol/L (98-108); Creatinine, Blood 1.18 mg/dL (0.60-1.20); Globulin, Blood 4.6 g/dL (2.2-4.0); Glomerular Filtration Rate >60 (60-); Glucose, Blood 171 mg/dL (70-99); Potassium, Blood 4.6 mmol/L (3.5-5.5); Sodium, Blood 136 mmol/L (136-145); Total Protein, Blood 7.7 g/dL (6.4-8.2)
== END | disposition home or self-care (01) ==
LOC: LAB 18:30
PROVIDERS: Internal Medicine Infectious Disease
DX: M71.122 Other infective bursitis, left elbow (principal); M86.9 Osteomyelitis, unspecified
CPT/HCPCS: 80053; 85025; 85651; 86140

== ENCOUNTER → 2020-04-07 | Outpatient (CLI) | payer MEDICARE ==
[~2020-04-07] MED LIST changes: -CEFD300 PO
[2020-04-07 19:47] LABS: BASOPHILS ABSOLUTE AUTO 0.07 K/mm3 (0.00-0.23); BASOPHILS PERCENT AUTO 1 % (0-2); EOSINOPHILS ABSOLUTE AUTO 0.31 K/mm3 (0.00-0.68); EOSINOPHILS PERCENT AUTO 4 % (0-6); Hematocrit 43.4 % (37.0-53.0); Hemoglobin 13.6 g/dL (13.5-17.5); IMMATURE GRAN ABSOLUTE AUTO 0.03 K/mm3 (0.00-0.10); IMMATURE GRAN PERCENT AUTO 0 % (0-1); LYMPHOCYTES ABSOLUTE AUTO 2.52 K/mm3 (0.84-5.20); LYMPHOCYTES PERCENT AUTO 30 % (21-46); MONOCYTES ABSOLUTE AUTO 0.75 K/mm3 (0.16-1.47); MONOCYTES PERCENT AUTO 9 % (4-13); Mean Corpuscular HGB 29.2 pg (26.0-34.0); Mean Corpuscular HGB Conc 31.3 g/dL (31.5-36.5); Mean Corpuscular Volume 93 fL (80-100); Mean Platelet Volume 11.4 fL (9.1-12.4); NEUTROPHILS ABSOLUTE AUTO 4.65 K/mm3 (1.96-9.15); NEUTROPHILS PERCENT AUTO 56 % (41-73); Platelet Count 181 K/mm3 (150-400); RDW Coefficient Variation 14.6 % (11.7-14.2); RDW Standard Deviation 49.7 fL (35.1-46.3); Red Blood Cell Count 4.66 M/mm3 (4.30-5.90); White Blood Cell Count 8.33 K/mm3 (4.00-11.30)
[2020-04-07 20:03] LABS: Alanine Aminotransfer (ALT/SGP 28 U/L (12-78); Albumin, Blood 3.2 g/dL (3.4-5.0); Albumin/Globulin Ratio 0.7 (0.8-1.8); Alk Phos 65 U/L (50-136); Anion Gap 11 mmol/L (6-16); Aspartate Aminotrans (AST/SGOT 24 U/L (12-37); Bilirubin, Total 0.3 mg/dL (0.1-1.0); Blood Urea Nitrogen 33 mg/dL (8-24); Bun/Creatinine Ratio 26.4 (12.0-20.0); CO2, Blood 27 mmol/L (21-32); Calcium, Blood 9.2 mg/dL (8.5-10.1); Chloride, Blood 97 mmol/L (98-108); Creatinine, Blood 1.25 mg/dL (0.60-1.20); Globulin, Blood 4.7 g/dL (2.2-4.0); Glomerular Filtration Rate >60 (60-); Glucose, Blood 167 mg/dL (70-99); Potassium, Blood 4.4 mmol/L (3.5-5.5); Sodium, Blood 135 mmol/L (136-145); Total Protein, Blood 7.9 g/dL (6.4-8.2)
== END | disposition home or self-care (01) ==
LOC: LAB HH 11:45
PROVIDERS: Internal Medicine Infectious Disease
DX: M86.9 Osteomyelitis, unspecified (principal); M71.122 Other infective bursitis, left elbow
CPT/HCPCS: 80053; 85025

== ENCOUNTER → 2020-04-21 | Outpatient (CLI) | payer MEDICARE ==
[~2020-04-21] MED LIST changes: +CEFD300 PO
[2020-04-21 19:28] LABS: BASOPHILS ABSOLUTE AUTO 0.06 K/mm3 (0.00-0.23); BASOPHILS PERCENT AUTO 1 % (0-2); EOSINOPHILS ABSOLUTE AUTO 0.24 K/mm3 (0.00-0.68); EOSINOPHILS PERCENT AUTO 3 % (0-6); Hematocrit 44.3 % (37.0-53.0); Hemoglobin 13.8 g/dL (13.5-17.5); IMMATURE GRAN ABSOLUTE AUTO 0.03 K/mm3 (0.00-0.10); IMMATURE GRAN PERCENT AUTO 0 % (0-1); LYMPHOCYTES ABSOLUTE AUTO 2.44 K/mm3 (0.84-5.20); LYMPHOCYTES PERCENT AUTO 27 % (21-46); MONOCYTES ABSOLUTE AUTO 0.78 K/mm3 (0.16-1.47); MONOCYTES PERCENT AUTO 9 % (4-13); Mean Corpuscular HGB 28.6 pg (26.0-34.0); Mean Corpuscular HGB Conc 31.2 g/dL (31.5-36.5); Mean Corpuscular Volume 92 fL (80-100); Mean Platelet Volume 11.7 fL (9.1-12.4); NEUTROPHILS ABSOLUTE AUTO 5.34 K/mm3 (1.96-9.15); NEUTROPHILS PERCENT AUTO 60 % (41-73); Platelet Count 200 K/mm3 (150-400); RDW Coefficient Variation 14.3 % (11.7-14.2); RDW Standard Deviation 48.8 fL (35.1-46.3); Red Blood Cell Count 4.82 M/mm3 (4.30-5.90); White Blood Cell Count 8.89 K/mm3 (4.00-11.30)
[2020-04-21 19:36] LABS: Alanine Aminotransfer (ALT/SGP 30 U/L (12-78); Albumin, Blood 3.3 g/dL (3.4-5.0); Albumin/Globulin Ratio 0.7 (0.8-1.8); Alk Phos 65 U/L (50-136); Anion Gap 9 mmol/L (6-16); Aspartate Aminotrans (AST/SGOT 23 U/L (12-37); Bilirubin, Total 0.3 mg/dL (0.1-1.0); Blood Urea Nitrogen 24 mg/dL (8-24); Bun/Creatinine Ratio 21.8 (12.0-20.0); CO2, Blood 26 mmol/L (21-32); Calcium, Blood 8.9 mg/dL (8.5-10.1); Chloride, Blood 100 mmol/L (98-108); Globulin, Blood 4.6 g/dL (2.2-4.0); Glomerular Filtration Rate >60 (60-); Glucose, Blood 173 mg/dL (70-99); Potassium, Blood 4.3 mmol/L (3.5-5.5); Sodium, Blood 135 mmol/L (136-145); Total Protein, Blood 7.9 g/dL (6.4-8.2)
== END | disposition home or self-care (01) ==
LOC: LAB SHORT 18:12
PROVIDERS: Internal Medicine Infectious Disease
DX: M86.9 Osteomyelitis, unspecified (principal); M71.122 Other infective bursitis, left elbow
CPT/HCPCS: 80053; 85025

== ENCOUNTER → 2020-07-27 | Outpatient (CLI) | payer MEDICARE ==
[2020-07-27 19:14] LABS: U Amphetamine Screen Not Detected; U Barbituate Screen Not Detected; U Benzodiazapine Screen Not Detected; U Buprenorphine Screen Not Detected; U Cannabinoids Screen Not Detected; U Cocaine Screen Not Detected; U Methadone Screen Not Detected; U Methamphetamine Screen Not Detected; U Opiates Screen DETECTED; U Oxycodone Screen Not Detected; U Phencyclidine Screen Not Detected; U Propoxyphene Screen Not Detected
== END ==
LOC: LAB SHORT 12:00 → LAB 12:00
PROVIDERS: Internal Medicine Hematology & Oncology
DX: Z51.81 Encounter for therapeutic drug level monitoring (principal); Z79.899 Other long term (current) drug therapy
CPT/HCPCS: G0480

== ENCOUNTER 2020-10-04 00:16 | Inpatient (IN) | payer MEDICARE ==
[~2020-10-04] VITALS: Ht 193 cm; Wt 152.5 kg
[~2020-10-04 00:16] MED LIST changes: -CEFD300 PO
[2020-10-04 01:04] LABS: BASOPHILS ABSOLUTE AUTO 0.06 K/mm3 (0.00-0.23); BASOPHILS PERCENT AUTO 0 % (0-2); EOSINOPHILS ABSOLUTE AUTO 0.02 K/mm3 (0.00-0.68); EOSINOPHILS PERCENT AUTO 0 % (0-6); Hematocrit 43.1 % (37.0-53.0); Hemoglobin 14.3 g/dL (13.5-17.5); IMMATURE GRAN ABSOLUTE AUTO 0.07 K/mm3 (0.00-0.10); IMMATURE GRAN PERCENT AUTO 1 % (0-1); LYMPHOCYTES ABSOLUTE AUTO 1.09 K/mm3 (0.84-5.20); LYMPHOCYTES PERCENT AUTO 8 % (21-46); MONOCYTES ABSOLUTE AUTO 0.97 K/mm3 (0.16-1.47); MONOCYTES PERCENT AUTO 7 % (4-13); Mean Corpuscular HGB 29.7 pg (26.0-34.0); Mean Corpuscular HGB Conc 33.2 g/dL (31.5-36.5); Mean Corpuscular Volume 90 fL (80-100); Mean Platelet Volume 10.9 fL (9.1-12.4); NEUTROPHILS PERCENT AUTO 84 % (41-73); Platelet Count 177 K/mm3 (150-400); RDW Coefficient Variation 14.4 % (11.7-14.2); Red Blood Cell Count 4.81 M/mm3 (4.30-5.90); White Blood Cell Count 14.01 K/mm3 (4.00-11.30)
[2020-10-04 01:24] LABS: Alanine Aminotransfer (ALT/SGP 37 U/L (12-78); Albumin, Blood 3.2 g/dL (3.4-5.0); Albumin/Globulin Ratio 0.6 (0.8-1.8); Alk Phos 71 U/L (50-136); Anion Gap 5 mmol/L (6-16); Aspartate Aminotrans (AST/SGOT 28 U/L (12-37); Bilirubin, Total 0.5 mg/dL (0.1-1.0); Blood Urea Nitrogen 22 mg/dL (8-24); CO2, Blood 29 mmol/L (21-32); Calcium, Blood 8.6 mg/dL (8.5-10.1); Chloride, Blood 98 mmol/L (98-108); Creatinine, Blood 1.22 mg/dL (0.60-1.20); Globulin, Blood 5.3 g/dL (2.2-4.0); Glomerular Filtration Rate >60 (60-); Glucose, Blood 137 mg/dL (70-99); Potassium, Blood 4.6 mmol/L (3.5-5.5); Sodium, Blood 132 mmol/L (136-145); Total Protein, Blood 8.5 g/dL (6.4-8.2)
[2020-10-04 01:59] LABS: SARS-Cov-2 (COVID-19) PCR, MMC NEGATIVE (NEGATIVE)
[2020-10-04 02:10] LABS: Source, Urine Clean Catch
[2020-10-04 02:25] LABS: Bilirubin, Urine Neg (Neg); Blood, Urine 2+ (Neg); Glucose Qualitative, Urine Neg (Neg); Ketones, Urine Neg (Neg); Leukocyte Esterase, Urine 1+ (Neg); Nitrite, Urine Neg (Neg); Protein, Urine 3+ (Neg); Urobilinogen, Urine NORM (Normal)
[2020-10-04 02:26] LABS: Appearance, Urine Clear (Clear); Color, Urine Yellow (P-Yellow)
[2020-10-04 02:30] LABS: Red Blood Cells, Urine 0-2 /hpf (0-2); Squamous Epithelial Cells Few /hpf (Few)
[2020-10-04 02:31] LABS: Bacteria Few /hpf
[2020-10-04 05:27] LABS: U Amphetamine Screen Not Detected; U Barbituate Screen Not Detected; U Benzodiazapine Screen Not Detected; U Buprenorphine Screen Not Detected; U Cannabinoids Screen Not Detected; U Cocaine Screen Not Detected; U Methadone Screen Not Detected; U Methamphetamine Screen Not Detected; U Opiates Screen DETECTED; U Oxycodone Screen Not Detected; U Phencyclidine Screen Not Detected; U Propoxyphene Screen Not Detected
[2020-10-04 05:43] LABS: BASOPHILS ABSOLUTE AUTO 0.04 K/mm3 (0.00-0.23); BASOPHILS PERCENT AUTO 0 % (0-2); EOSINOPHILS PERCENT AUTO 0 % (0-6); Hematocrit 40.1 % (37.0-53.0); Hemoglobin 13.1 g/dL (13.5-17.5); IMMATURE GRAN ABSOLUTE AUTO 0.04 K/mm3 (0.00-0.10); IMMATURE GRAN PERCENT AUTO 0 % (0-1); LYMPHOCYTES ABSOLUTE AUTO 1.15 K/mm3 (0.84-5.20); LYMPHOCYTES PERCENT AUTO 9 % (21-46); MONOCYTES ABSOLUTE AUTO 1.05 K/mm3 (0.16-1.47); MONOCYTES PERCENT AUTO 9 % (4-13); Mean Corpuscular HGB 28.9 pg (26.0-34.0); Mean Corpuscular HGB Conc 32.7 g/dL (31.5-36.5); Mean Corpuscular Volume 89 fL (80-100); Mean Platelet Volume 10.7 fL (9.1-12.4); NEUTROPHILS ABSOLUTE AUTO 10.14 K/mm3 (1.96-9.15); NEUTROPHILS PERCENT AUTO 82 % (41-73); Platelet Count 152 K/mm3 (150-400); RDW Coefficient Variation 14.7 % (11.7-14.2); RDW Standard Deviation 47.9 fL (35.1-46.3); Red Blood Cell Count 4.53 M/mm3 (4.30-5.90); White Blood Cell Count 12.42 K/mm3 (4.00-11.30)
[2020-10-04 05:50] LABS: PCO2 Arterial 41.2 mmHg (35-45); pH Blood Arterial 7.44 (7.35-7.45)
[2020-10-04 06:06] LABS: Alanine Aminotransfer (ALT/SGP 31 U/L (12-78); Albumin, Blood 2.8 g/dL (3.4-5.0); Albumin/Globulin Ratio 0.6 (0.8-1.8); Alk Phos 65 U/L (50-136); Anion Gap 7 mmol/L (6-16); Aspartate Aminotrans (AST/SGOT 26 U/L (12-37); Bilirubin, Total 0.5 mg/dL (0.1-1.0); Blood Urea Nitrogen 21 mg/dL (8-24); Bun/Creatinine Ratio 17.5 (12.0-20.0); CO2, Blood 25 mmol/L (21-32); Calcium, Blood 8.4 mg/dL (8.5-10.1); Chloride, Blood 101 mmol/L (98-108); Globulin, Blood 4.8 g/dL (2.2-4.0); Glomerular Filtration Rate >60 (60-); Glucose, Blood 132 mg/dL (70-99); Potassium, Blood 4.3 mmol/L (3.5-5.5); Sodium, Blood 133 mmol/L (136-145); Total Protein, Blood 7.6 g/dL (6.4-8.2)
--- NOTE | 2020-10-04 06:50 | NUR ---
RECEIVED PT FROM UTILITY ASSEMBLERJUSTINO MORAES TO PCU 7, TRANSFERRED FROM ER [facility] TO PCU BED WITH HELP OF THREE STAFF MEMBERS. PT IS SATING ABOVE 94% ON 2L O2 VIA NC. HE IS WITHDRAWN, AND DROWSY. POOR HISTORIAN SECONDARY TO ALTERED MENTAL STATUS, SLOW TO RESPOND. PT DENIES CHEST PAIN OR SOB. PT HAS 20 GAUGE IV IN LEFT HAND UPON ADMISSION, BUT IT PULLED OUT. PCU HOUSING MANAGEMENT OFFICER INSERTED 20 GAUGE IN PT'S LFA. IV FLUIDS INFUSING AT WO PER SEPSIS PROTOCOL, THIS IS PT'S SECOND BOLUS. CONNECTED TO TELEMETRY, SINUS TACH AT 108 WITH PVC'S AND INVERTED T-WAVES BY REPORT FROM JULY, FACULTY INSTRUCTOR. PT IS ABLE TO RE-POSITION HIMSELF IN BED. BED ALARM SET DUE TO PT'S AMS AND FORGETFUL OF HIS OWN LIMITATIONS. WILL CONTINUE TO MONITOR.
--- NOTE | 2020-10-04 07:32 | NUR ---
SHIFT SUMMARY PT REMAINED DROWSY AND IN BED. NO ACUTE CHANGES. VSS. GAVE REPORT TO ONCOMING NURSE JUSTINO UP.
[2020-10-04] MEDS ORDERED: CEFD300 PO (12:09)
--- NOTE | 2020-10-04 16:34 | NUR ---
D/C ORDERS PLACED; PT'S IV ABX RUNNING; INFUSION COMPLETED AT 1335; PIV'S D/C'ED AT 1340; DISCHARGE TEACHING GIVEN VERBALLY AT BEDSIDE; PT DENIED ADDITIONAL CONCERNS AT THIS TIME; PT ASSISTED WITH DRESSING AND CALLED TO COME PICK HIM UP; PT LEFT AT 1420 VIA WHEELCHAIR ASSISTED BY TECH WITH PERSONAL EFFECTS, NO OXYGEN, NO MONITORING, NO INFUSIONS, AND CONTINUOUS GLUCOMETER IMPLANT AND NICOTINE PATCH.
== END 2020-10-04 14:30 | disposition home or self-care (01) | DRG 871 ==
LOC: ER 00:16 → PCU 03:52
PROVIDERS: Emergency Medicine; ADMIT Internal Medicine
DX: A41.9 Sepsis, unspecified organism (principal); G93.41 Metabolic encephalopathy; L03.114 Cellulitis of left upper limb; M86.622 Other chronic osteomyelitis, left humerus; L97.929 Non-pressure chronic ulcer of unspecified part of left lower leg with unspecified severity; L97.919 Non-pressure chronic ulcer of unspecified part of right lower leg with unspecified severity; Z20.822 Contact with and (suspected) exposure to COVID-19; R65.20 Severe sepsis without septic shock; I10 Essential (primary) hypertension; E11.42 Type 2 diabetes mellitus with diabetic polyneuropathy; I25.10 Atherosclerotic heart disease of native coronary artery without angina pectoris; E66.9 Obesity, unspecified; E11.69 Type 2 diabetes mellitus with other specified complication; Z68.39 Body mass index [BMI] 39.0-39.9, adult; J44.9 Chronic obstructive pulmonary disease, unspecified; E78.5 Hyperlipidemia, unspecified; K21.9 Gastro-esophageal reflux disease without esophagitis; G47.33 Obstructive sleep apnea (adult) (pediatric); F17.210 Nicotine dependence, cigarettes, uncomplicated; Z88.8 Allergy status to other drugs, medicaments and biological substances; Z79.02 Long term (current) use of antithrombotics/antiplatelets; Z79.4 Long term (current) use of insulin; Z79.82 Long term (current) use of aspirin; Z79.899 Other long term (current) drug therapy; Z86.14 Personal history of Methicillin resistant Staphylococcus aureus infection; Z90.49 Acquired absence of other specified parts of digestive tract; Z98.890 Other specified postprocedural states
CPT/HCPCS: 36415; 36600; 51701; 71045; 80053; 81001; 82803; 82947; 83605; 83880; 84145; 85025; 87040; 87086; 93005; 93010; 96365-59; 96366-59; 99285-25; A9270; J0456; J0696; J1650; J2543; J3370; J7030; J7050; U0004

== ENCOUNTER 2021-03-10 18:47 | Inpatient (IN) | payer MEDICARE ==
[~2021-03-10] VITALS: Ht 188 cm; Wt 153.4 kg
[~2021-03-10 18:47] MED LIST changes: -Aspirin EC81 MG PO; -BASAGLAR K100 UNIT/1 SC; -Bumetanide2 MG PO; +CEFD300 PO; -GLIM2 PO; -HUMALOG KW100 UNIT/1 SC; -Klor-Con 1010 MEQ PO; -Lopressor 50 mg50 MG PO; -NEURONTIN300 MG PO; -PLAVIX75 MG PO
[2021-03-10 19:35] LABS: BASOPHILS ABSOLUTE AUTO 0.05 K/mm3 (0.00-0.23); BASOPHILS PERCENT AUTO 0 % (0-2); EOSINOPHILS ABSOLUTE AUTO 0.05 K/mm3 (0.00-0.68); EOSINOPHILS PERCENT AUTO 0 % (0-6); Hematocrit 44.4 % (37.0-53.0); Hemoglobin 14.5 g/dL (13.5-17.5); IMMATURE GRAN PERCENT AUTO 1 % (0-1); LYMPHOCYTES ABSOLUTE AUTO 0.83 K/mm3 (0.84-5.20); LYMPHOCYTES PERCENT AUTO 6 % (21-46); MONOCYTES ABSOLUTE AUTO 0.99 K/mm3 (0.16-1.47); MONOCYTES PERCENT AUTO 7 % (4-13); Mean Corpuscular HGB 29.6 pg (26.0-34.0); Mean Corpuscular HGB Conc 32.7 g/dL (31.5-36.5); Mean Corpuscular Volume 91 fL (80-100); Mean Platelet Volume 11.6 fL (9.1-12.4); NEUTROPHILS ABSOLUTE AUTO 12.71 K/mm3 (1.96-9.15); NEUTROPHILS PERCENT AUTO 86 % (41-73); Platelet Count 180 K/mm3 (150-400); RDW Coefficient Variation 13.9 % (11.7-14.2); RDW Standard Deviation 46.5 fL (35.1-46.3); White Blood Cell Count 14.73 K/mm3 (4.00-11.30)
[2021-03-10 19:42] LABS: Albumin/Globulin Ratio 0.6 (0.8-1.8); Bilirubin, Total 0.5 mg/dL (0.1-1.0); Bun/Creatinine Ratio 23.2 (12.0-20.0); Calcium, Blood 9.2 mg/dL (8.5-10.1); Creatinine, Blood 1.38 mg/dL (0.60-1.20); Globulin, Blood 5.2 g/dL (2.2-4.0); Total Protein, Blood 8.2 g/dL (6.4-8.2)
[2021-03-10] MEDS ORDERED: Lopressor 50 mg50 MG PO (20:35)
[2021-03-10] MEDS ORDERED: ROPINIROLE PO (20:35)
[2021-03-10] MEDS ORDERED: HYDROCODONE-AC1 EAC7 PO (20:36)
[2021-03-10] MEDS ORDERED: Klor-Con 1010 MEQ PO (20:37)
[2021-03-10] MEDS ORDERED: POTA10T PO (20:39)
[2021-03-10] MEDS ORDERED: NOVOLOG FL100 UNIT/3 SC (20:40)
[2021-03-10] MEDS ORDERED: Bumetanide2 MG PO (20:41)
[2021-03-10] MEDS ORDERED: GLIM2 PO (20:41)
[2021-03-10] MEDS ORDERED: NEURONTIN300 MG PO (20:43)
[2021-03-10] MEDS ORDERED: GLIP10ER PO (20:44)
[2021-03-10] MEDS ORDERED: METFORMIN HCL500 M3 PO (20:44)
[2021-03-10] MEDS ORDERED: GABA100 PO (20:46)
[2021-03-10] MEDS ORDERED: SITA100T2 PO (20:47)
[2021-03-10] MEDS ORDERED: LOSA50 PO (20:47)
[2021-03-10] MEDS ORDERED: ESOMEPRAZOLE MA40 MG PO (20:48)
[2021-03-10] MEDS ORDERED: PLAVIX75 MG PO (20:48)
[2021-03-10] MEDS ORDERED: BASAGLAR K100 UNIT/1 SC (20:50)
[2021-03-10] MEDS ORDERED: Aspirin EC81 MG PO (20:50)
[2021-03-10 21:19] LABS: Source, Urine Clean Catch
[2021-03-10 21:25] LABS: Appearance, Urine Clear (Clear); Bilirubin, Urine Neg (Neg); Blood, Urine 2+ (Neg); Color, Urine Yellow (P-Yellow); Glucose Qualitative, Urine Neg (Neg); Ketones, Urine Neg (Neg); Leukocyte Esterase, Urine Neg (Neg); Nitrite, Urine Neg (Neg); Protein, Urine 2+ (Neg); Specific Gravity, Urine 1.015 (1.003-1.022); Urobilinogen, Urine NORM (Normal)
[2021-03-10 21:25] LABS: SARS-Cov-2 (COVID-19) PCR, MMC NEGATIVE (NEGATIVE)
[2021-03-10 21:33] LABS: Bacteria Few /hpf; Squamous Epithelial Cells Not Seen /hpf (Few); White Blood Cells, Urine 0-2 /hpf (0-5)
[2021-03-11 00:32] LABS: Source, Urine Catheter
[2021-03-11 00:34] LABS: Bilirubin, Urine Neg (Neg); Blood, Urine 1+ (Neg); Glucose Qualitative, Urine 1+ (Neg); Ketones, Urine Neg (Neg); Leukocyte Esterase, Urine Neg (Neg); Nitrite, Urine Neg (Neg); Protein, Urine 2+ (Neg); Specific Gravity, Urine 1.015 (1.003-1.022); Urobilinogen, Urine NORM (Normal)
[2021-03-11 00:39] LABS: Appearance, Urine Clear (Clear); Color, Urine Yellow (P-Yellow)
[2021-03-11 00:40] LABS: Bacteria Few /hpf; Red Blood Cells, Urine 0-2 /hpf (0-2); Renal Epithelial Few /hpf (0-Rare); Squamous Epithelial Cells Not Seen /hpf (Few); White Blood Cells, Urine 0-2 /hpf (0-5)
[2021-03-11 04:21] LABS: BASOPHILS ABSOLUTE AUTO 0.08 K/mm3 (0.00-0.23); BASOPHILS PERCENT AUTO 0 % (0-2); EOSINOPHILS PERCENT AUTO 0 % (0-6); Hematocrit 41.8 % (37.0-53.0); Hemoglobin 13.6 g/dL (13.5-17.5); IMMATURE GRAN ABSOLUTE AUTO 0.17 K/mm3 (0.00-0.10); IMMATURE GRAN PERCENT AUTO 1 % (0-1); LYMPHOCYTES ABSOLUTE AUTO 0.74 K/mm3 (0.84-5.20); LYMPHOCYTES PERCENT AUTO 3 % (21-46); MONOCYTES ABSOLUTE AUTO 1.02 K/mm3 (0.16-1.47); MONOCYTES PERCENT AUTO 5 % (4-13); Mean Corpuscular HGB 29.4 pg (26.0-34.0); Mean Corpuscular HGB Conc 32.5 g/dL (31.5-36.5); Mean Corpuscular Volume 90 fL (80-100); Mean Platelet Volume 10.9 fL (9.1-12.4); NEUTROPHILS ABSOLUTE AUTO 19.64 K/mm3 (1.96-9.15); NEUTROPHILS PERCENT AUTO 91 % (41-73); Platelet Count 148 K/mm3 (150-400); RDW Standard Deviation 46.2 fL (35.1-46.3); Red Blood Cell Count 4.63 M/mm3 (4.30-5.90); White Blood Cell Count 21.65 K/mm3 (4.00-11.30)
[2021-03-11 04:41] LABS: Albumin, Blood 2.5 g/dL (3.4-5.0); Albumin/Globulin Ratio 0.5 (0.8-1.8); Bilirubin, Total 0.8 mg/dL (0.1-1.0); Bun/Creatinine Ratio 24.4 (12.0-20.0); Calcium, Blood 8.5 mg/dL (8.5-10.1); Creatinine, Blood 1.31 mg/dL (0.60-1.20); Globulin, Blood 4.7 g/dL (2.2-4.0); Potassium, Blood 4.9 mmol/L (3.5-5.5); Total Protein, Blood 7.2 g/dL (6.4-8.2)
--- NOTE | 2021-03-11 06:17 | NUR ---
SHIFT SUMMARY PT TO UNIT FROM ED. DOILED. ROLLING IN BED BUT SOMEWHAT ALERT. WOUNDS TO BILAT LEGS, HANDS, AND T/O. WOUND VAC TUBING TO L ELBOW BUT NO WOUND VAC ATTACHED. PT FEBRILE DESPITE TYLENOL. PLACED ON KPAD COOLING BUT THIS DID NOT PEVENT PT FROM REACHING TEMP OF 102, 0530, PT PLACED ON BAREHUGGER COOLING DEVICE. TEMP NOW RECEDING TO 101. PT REMAINS IN [facility] ON ADMISSION, SBP 80'S. RECIVIED MULTIPLE FLUID BOLUSES, NOW SBP >105. WOUND VAC REPLACED WITH HELP OF BEN Cha LABORER FILTER PLANT. PT CONTINUES ON 4LNC. PT NPO. TEMP ARELLANO PLACED. LARGE IMMEDIATE OUTPUTE NOTED. OTHERWISE, PT REMAINS SOMEWHAT LETHARGIC IN ROOM, MOANING. ROLLING IN BED. BED ALARM IN PLACE. UPDATED REGARDING CONDITION. CALL LIGHT WITHIN REACH.
--- NOTE | 2021-03-11 07:42 | NUR ---
Bedside report from JUSTINO Kothari. Pt awakens to verbal stimuli, falls back asleep quickly in brightly lit room. Breathing while lying on left side is tachypneic, belly moving, and 73-77% spo2 noted with cyanosis of fingers and ears, lips. Put on O2 to improve spo2 to 90% at this time. IV dc'd right finger due to pt pulling.
--- NOTE | 2021-03-11 12:12 | NUR ---
Tovar temp probe 101.7; pt was given rectal tylenol suppository and removed the sheet which was covering him. He is lethargic. Unable to carry on complete conversations without falling asleep mid-sentence most of the time. At this time he is going to imaging dept for MRI scan of his leg.
[2021-03-11 16:43] LABS: PCO2 Arterial 43.9 mmHg (35-45); PO2 Arterial 55.2 mmHg (80-100); pH Blood Arterial 7.44 (7.35-7.45)
[2021-03-11 17:16] LABS: U Amphetamine Screen Not Detected; U Barbituate Screen Not Detected; U Benzodiazapine Screen Not Detected; U Buprenorphine Screen Not Detected; U Cannabinoids Screen Not Detected; U Cocaine Screen Not Detected; U Methadone Screen Not Detected; U Methamphetamine Screen Not Detected; U Opiates Screen DETECTED; U Oxycodone Screen Not Detected; U Phencyclidine Screen Not Detected; U Propoxyphene Screen Not Detected
--- NOTE | 2021-03-11 17:46 | NUR ---
Epi has been sleepy throughout the day. Awakens occasionally spontaneously to sit on side of bed, and once used the call light when he needed to have a BM. When awakened he engages very little in conversation, often closing his eyes and appears to be very sleepy during conversation. Other times he appears to just not be engaging in conversation. He was unable to hold still enough for the MRI today per opthalmic tech, so returned to the unit and Dr. Ansari was informed of this. Will attempt again tomorrow; perhaps the pt will be able to follow directions and be more cooperative. He has not been asking for food nor drink at all today. He was encouraged to drink ice water after his NPO status was changed, which he did. He attempted to sit on side of bed and eat dinner, but after a few bites he felt nauseated and so he was given zofran and lay down again on the bed, on his left side. Tovar catheter is draining dark yellow urine, and he did have a normal soft formed brown BM today on the bed gordillo. His daughter is here visiting him now, and he seems to be engaging her in covnersation.
[2021-03-11 20:26] LABS: Vancomycin, Trough 13.3 ug/mL (5.0-10.0)
--- NOTE | 2021-03-11 23:18 | NUR ---
UPDATE PATIENT BECOMING MORE ALERT, AGITATED AND RESTLESS. TRYING TO CLIMB OUT OUT OF BED AND YELLING/MOANING OUT. PATIENT PULLED TEMP PROBE ARELLANO OUT WITH BULB INTACT. BLOOD/CLOTS FROM PENIS, PATIENT CLEANED UP. ATTEMPTING TO PULL AT WOUND VAC ON ELBOW. PATIENT EASILY REDIRECTED BUT CONTINUES TO YELL OUT AND GET OUT OF BED SOON STAFF ARE NOT AT BEDSIDE. CALL PLACED TO DR. CRYSTAL REGARDING HOME MEDICATIONS THAT WERE STOPPED SINCE ADMISSION. NEW ORDERS RECIEVED, SEE NEW ORDERS AND UPDATED EMAR.
--- NOTE | 2021-03-11 23:30 | NUR ---
RAYRAY MILLIGAN CALL FROM [employer] AT 2329 ABOUT PATIENT HR IN THE 30S. THIS RN TOLD SHOVEL OPERATOR TO CALL METER READER DUE TO THIS RN MEDICATING ANOTHER PATIENT. 2330 RAYRAY IMLLIGAN WAS CALLED AND METER READER STARTED COMPRESSIONS. CODE TEAM ARRIVED. ACLS INITIATED, SEE RAYRAY BLUE FLOW SHEET. SEE METER READER NOTE. DR. COSTA NOTIFIED ANDREW. METER READER ALSO SPOKE WITH ANDREW. NO DECISIONS FOR HOME MADE AT THIS TIME. POST MORTEM CARE COMPLETED. PERSONAL BELONGINGS GATHERED.
--- NOTE | 2021-03-11 23:48 | NUR ---
PT FOUND UNRESPONSIVE CALLED TO ROOM BY SOLAR HOT WATER INSTALLER FOR HEART RATE AVA IN THE 30'S AND PRIMARY NURSE IN ANOTHER PT'S ROOM. FOUND PT UNRESPONSIVE, DUSKY IN COLOR, NASAL CANNULA OUT OF NOSE AND RESTING ON CHEST. PT UNRESPONSIVE TO STERNAL RUB. NOT BREATHING, NO PULSE PALPATED. CALLED CODE BLUE AND STARTED COMPRESSIONS. CODE TEAM ARRIVED, RESUMED SUPPORTIVE ROLE TO ASSIST WITH RUNNING FOR SUPPLIES AND MONITORING THE REST OF THE PATIENTS IN PCU.
--- NOTE | 2021-03-12 02:40 | NUR ---
FINAL DISCHARGE PATIENT PICKED UP BY [facility] AT 0217. PERSONAL BELONGINGS AT NURSES STATION FOR TO POSTDOCTORAL RESEARCH ASSOCIATE DURING DAY SHIFT.
== END 2021-03-12 02:25 | DRG 871 ==
LOC: ER 18:47 → PCU 22:13
PROVIDERS: Emergency Medicine; Internal Medicine; Student in an Organized Health Care Education/Training Program; ADMIT Internal Medicine
PROC: 5A12012 Performance of Cardiac Output, Single, Manual (ICD-10-PCS; principal; 2021-03-12)
PROC: 0BH17EZ Insertion of Endotracheal Airway into Trachea, Via Natural or Artificial Opening (ICD-10-PCS; 2021-03-12)
DX: A41.9 Sepsis, unspecified organism (principal); G92.8 Other toxic encephalopathy; R65.21 Severe sepsis with septic shock; J96.01 Acute respiratory failure with hypoxia; L03.116 Cellulitis of left lower limb; N17.9 Acute kidney failure, unspecified; I47.2 Ventricular tachycardia; Z20.822 Contact with and (suspected) exposure to COVID-19; I10 Essential (primary) hypertension; E78.00 Pure hypercholesterolemia, unspecified; E11.40 Type 2 diabetes mellitus with diabetic neuropathy, unspecified; I46.2 Cardiac arrest due to underlying cardiac condition; I25.10 Atherosclerotic heart disease of native coronary artery without angina pectoris; G47.33 Obstructive sleep apnea (adult) (pediatric); K21.9 Gastro-esophageal reflux disease without esophagitis; J44.9 Chronic obstructive pulmonary disease, unspecified; F17.210 Nicotine dependence, cigarettes, uncomplicated; E11.65 Type 2 diabetes mellitus with hyperglycemia; E11.621 Type 2 diabetes mellitus with foot ulcer; L97.529 Non-pressure chronic ulcer of other part of left foot with unspecified severity; K42.9 Umbilical hernia without obstruction or gangrene; E86.0 Dehydration; E11.51 Type 2 diabetes mellitus with diabetic peripheral angiopathy without gangrene; D69.59 Other secondary thrombocytopenia; Z86.14 Personal history of Methicillin resistant Staphylococcus aureus infection; Z90.49 Acquired absence of other specified parts of digestive tract; Z95.1 Presence of aortocoronary bypass graft; Z95.5 Presence of coronary angioplasty implant and graft; Z89.422 Acquired absence of other left toe(s); Z88.8 Allergy status to other drugs, medicaments and biological substances; Z79.4 Long term (current) use of insulin; Z79.01 Long term (current) use of anticoagulants; Z79.82 Long term (current) use of aspirin; Z79.899 Other long term (current) drug therapy
CPT/HCPCS: 31500; 36415; 36600; 71045; 73660; 80053; 80202; 81001; 82803; 82947; 83605; 85025; 87040; 92950; 93005; 93010; 94640; 94762; 96374; 99285-25; A9270; C1751; J0282; J1650; J1815; J2405; J2543; J3370; J7030; J7050; J7120; U0004